=== PATIENT | female | born 1950 | race Caucasian/White ===

== ENCOUNTER 2016-11-29 22:21 | Inpatient (IN) | payer MEDICARE, BC ==
--- NOTE | ~2016-11-29 | US77 ---
[facility] A Service of [facility] & [facility] RADIOLOGY TEXT RESULTS PATIENT: WHITNEY RONDON LOCATION: C2A 217-01 : 54 UNIT #: [id number] AGE: [address]: Anurag Bush MD SEX: F ORDER DR: [id number] [facility] [address] [place], [place] [address] [id number] I MR#: [id number] Acc #: [id number] NAME: WHITNEY RONDON : 1950 SEX: F STUDY DATE/TIME: 11/30/2016 11:00 UNIT: A ROOM: [facility] STUDY DESCRIPTION: US Kidney Bilateral Complete Attending Physician: Anurag Bush M.D. Ordering Physician: Harriet Naik M.D. Primary Care Physician: Eric Rosado M.D. MEDICAL IMAGING REPORT This report is preliminary unless electronic signature is present EXAM Renal ultrasound INDICATIONS Elevated BUN and creatinine. Low GFR. Concern for obstruction. TECHNIQUE Galvez-scale imaging of the kidneys and urinary bladder was performed and compared with 10/19/2015 FINDINGS The left kidney measures 10.8 cm in length. The right kidney measures 8.7 cm in length. Renal cortical thickness and echogenicity is normal. There is no hydronephrosis. Patient has a Lucero catheter and bladder is not visualized. IMPRESSION No hydronephrosis Dictated by... Arvin Pascal M.D. THIS IS AN ELECTRONICALLY VERIFIED REPORT Arvin Pascal M.D. at 12/01/2016 7:54 AM PORSCHE/samara TD: 11/30/2016 17:19 JOB #: [id number] MEDICAL IMAGING REPORT Page 1 of 1 COPY
--- NOTE | ~2016-11-29 | CR243 ---
[facility] A Service of [facility] & [facility] RADIOLOGY TEXT RESULTS PATIENT: WHITNEY RONDON LOCATION: C2A 217-01 : 54 UNIT #: [id number] AGE: [address]: Anurag Bush MD SEX: F ORDER DR: [id number] [facility] [address] [facility]. [place], [place] [address] [id number] MR#: [id number] Acc #: [id number] NAME: WHITNEY RONDON : 1950 SEX: F STUDY DATE/TIME: 11/30/2016 16:02 UNIT: C2A ROOM: [facility] STUDY DESCRIPTION: CR Thoracic Spine 3 Views Attending Physician: Anurag Bush M.D. Ordering Physician: Anurag Bush M.D. Primary Care Physician: Eric Rosado M.D. MEDICAL IMAGING REPORT This report is preliminary unless electronic signature is present EXAM Thoracic spine series HISTORY Back pain for the past week after falling TECHNIQUE 3 views of the thoracic spine were obtained FINDINGS Alignment is satisfactory. There is no evidence of compression fracture or bone destruction. Befl-iv-ruaeuppn degenerative changes are seen throughout the thoracic discs. There is no evidence of bone destruction. The pedicles are intact at each level and no paraspinous masses are seen. IMPRESSION Fklr-mi-frnhaelv multilevel thoracic degenerative disc disease. No acute findings. No fracture seen. If there is continued clinical concern for fracture, consider further evaluation with nuclear medicine bone scanning or MRI. Dictated by... Lucio Cooper M.D. THIS IS AN ELECTRONICALLY VERIFIED REPORT Lucio Cooper M.D. at 12/01/2016 2:15 PM RLF/to TD: 11/30/2016 17:14 JOB #: [id number] MEDICAL IMAGING REPORT Page 1 of 1 COPY
--- NOTE | ~2016-11-29 | HP ---
Unit #: [id number] #: [id number] Patient: WHITNEY RONDON [id number] [address] [place], [place] [address] [id number] I MR#: [id number] NAME: WHITNEY RONDON ROOM: 43913 Age: 66 Sex: F Admission Date: 11/30/2016 : 1950 Attending Physician: Harriet Naik M.D. Primary Care Physician: Eric Rosado M.D. HISTORY AND PHYSICAL CHIEF COMPLAINT Pyelonephritis, acute kidney injury. HISTORY This 66-year-old female with dystonia affecting the right arm and leg, chronic pain, elevated blood pressure, is admitted for pyelonephritis and acute kidney injury with weakness and falling. The patient states that two months ago she developed increasing weakness, and required treatment for a urinary tract infection. Also developed influenzae. Last took antibiotics which I believe was Macrobid about four weeks ago. However, over the past five days, has been falling, actually fell four times and really is unable to ambulate with a walker anymore or even transfer much. More recently, she has developed left sided abdominal and flank pain with dysuria, increasing spasm, fevers, sweats, chills. Notes poor p.o. intake over the past few days as well. She presents to this emergency department with a blood pressure of 93/61 and a low grade temperature. She is tender in the left flank region and left upper quadrant. Labs are notable for acute kidney injury and significant pyuria. In the ER, she was bolused a liter of saline, given 2 gm of Rocephin. PAST MEDICAL HISTORY 1. Admission 10/2015 for hypotension and acute kidney injury. Her antihypertensive medications were stopped at that time. 2. Elevated blood pressures which the patient attributes to pain and stress. 3. GERD. 4. Dystonia affecting the right arm and right leg requiring Botox by Dr. Aniceto Telles. 5. Fibromyalgia. 6. Chronic low back pain following compression fracture from trauma many years ago. 7. History of asthma. 8. Bipolar disorder. 9. Negative cardiac catheterization in 2005. 10. ALTON and BSO. 11. Bilateral carpal tunnel release. 12. Appendectomy. 13. Neuroma removed from the feet bilaterally. 14. Urge incontinence, treated with cystoscopy and Botox injection in August. 15. Lymph node excised. 16. Tonsillectomy. Unit #: [id number] #: [id number] Patient: ALCON,WHITNEY ALLERGIES Reglan, Cipro, sulfa, methadone, and influenza vaccine. Also, possibly allergic to penicillin per current records. HOME MEDICATIONS 1. Morphine sulfate 15 mg t.i.d. 2. Ambien 5 mg q. h.s. p.r.n. 3. Lisinopril 10 mg daily. 4. Valium 10 mg t.i.d. p.r.n. 5. Elavil 25 mg daily. 6. Ditropan 15 mg b.i.d. 7. Zoloft 200 mg daily. FAMILY HISTORY CAD, diabetes mellitus, hypertension. SOCIAL HISTORY The patient lives with her brother. She states that she was previously able to use a walker, now is wheelchair bound. She does no drink alcohol and she is a lifelong nonsmoker. REVIEW OF SYSTEMS Notable for left flank, left abdominal pain, feeling feverish, chills, increasing weakness with fall, dysuria, anorexia, hypertension, GERD, dystonia, fibromyalgia, chronic pain, asthma, bipolar disorder, above mentioned surgeries. All other systems were reviewed and are otherwise negative. PHYSICAL EXAMINATION GENERAL APPEARANCE: 66-year-old, moderately obese female, currently in no acute distress. VITAL SIGNS: Temperature 99.2, pulse 81, respirations 24, blood pressure 93/61, O2 saturation 92% on 4 L of oxygen initially. HEENT: Eyes PERRLA. Extraocular muscles are intact. Pharynx is benign. NECK: Somewhat rotated towards the right. No adenopathy or thyromegaly. CHEST: Clear on patient's supine exam. CARDIAC: Normal S1 and S2 without S3, S4 or murmur. ABDOMEN: Bowel sounds are present. The patient is tender in the left upper quadrant without rebound, guarding. No hepatosplenomegaly or masses. BACK: The patient is tender over the left flank region. EXTREMITIES: Without edema. Pedal pulses are present. NEUROLOGIC EXAM: The patient is awake, alert. She is oriented. Her neck is rotated to the right. She has spasm and contraction of the right hand. DIAGNOSTIC STUDIES LABORATORY: Admission labs - hematocrit is 40.1, white blood count is 11.2, normal platelet count. Normal coags. SMA-12 - glucose 115, BUN 41, creatinine 2.2, up from a BUN of 11, creatinine of 0.7 last year. Sodium 133, chloride is 96, alkaline phos. 111. Lactic acid normal. Cardiac markers are negative. Urinalysis - positive leukocyte esterase, mild protein and blood with 100 to 200 red cells, innumerable white cells, 4+ bacteria, moderate squamous cells seen. Unit #: [id number] #: [id number] Patient: WHITNEY RONDON IMAGING: Chest x-ray - no acute disease. ASSESSMENT 1. Left sided pyelonephritis. 2. Acute kidney injury, likely multifactorial secondary to recent anorexia, with JENNYFER inhibitor and decreased blood pressure. 3. Weakness and falls. 4. History of an elevated blood pressure which the patient attributes to stress and pain. 5. Dystonia affecting the right arm and right leg. 6. Chronic pain. 7. History of asthma. 8. Bipolar disorder. PLANS 1. IV fluids. 2. Discontinue JENNYFER inhibitor. 3. Continue Rocephin. 4. Renal ultrasound. 5. Obtain CPK. 6. DVT prophylaxis. 7. Further workup and consultants depending on above. Dictated by May James/raymond TD: 11/30/2016 06:37 JOB #: [id number] HISTORY AND PHYSICAL Page 1 of 1 X Harriet Naik MD X HISTORY AND PHYSICAL
--- NOTE | ~2016-11-29 | CR72 ---
[facility] A Service of [facility] & [facility] RADIOLOGY TEXT RESULTS PATIENT: WHITNEY RONDON [facility] [id number] [birth year] UNIT #: [id number] AGE: [address]: Harriet Naik MD SEX: F ORDER DR: [id number] [facility] [address] [facility] [place], [place] [address] [id number] E MR#: [id number] Acc #: [id number] NAME: WHITNEY RONDON : 1950 SEX: F STUDY DATE/TIME: 11/29/2016 22:22 UNIT: [facility] ROOM: STUDY DESCRIPTION: CR Chest Single View Portable Attending Physician: Mary Grace Valenzuela M.D. Ordering Physician: Mary Grace Valenzuela M.D. Primary Care Physician: Eric Rosado M.D. MEDICAL IMAGING REPORT This report is preliminary unless electronic signature is present EXAM Portable chest. INDICATION Weakness and shortness of air x2 days. COMPARISON 10/20/2015 FINDINGS A portable view of the chest was obtained. The heart size and vascularity are normal and the lungs are clear and the bones are normal. IMPRESSION No active disease. Dictated by... Aquilino Krishnamurthy M.D. THIS IS AN ELECTRONICALLY VERIFIED REPORT Aquilino Krishnamurthy M.D. at 11/30/2016 5:30 AM Osei TD: 11/30/2016 02:56 JOB #: [id number] MEDICAL IMAGING REPORT Page 1 of 1 COPY
--- NOTE | ~2016-11-29 | CT57 ---
[facility] A Service of [facility] RADIOLOGY TEXT RESULTS PATIENT: WHITNEY RONDON LOCATION: [facility] : 54 UNIT #: [id number] AGE: [address]: Anurag Bush MD SEX: F ORDER DR: [id number] [address] [address] [id number] I MR#: [id number] Acc #: [id number] NAME: WHITNEY RONDON : 1950 SEX: F STUDY DATE/TIME: 11/30/2016 16:19 UNIT: [facility] ROOM: [facility] STUDY DESCRIPTION: CT Chest Wo Cont Attending Physician: Anurag Bush M.D. Ordering Physician: Anurag Bush M.D. Primary Care Physician: Eric Rosado M.D. MEDICAL IMAGING REPORT This report is preliminary unless electronic signature is present EXAM CT chest without contrast. INDICATION General weakness, shortness of breath, and back pain since yesterday. Possible pneumonia. TECHNIQUE CT chest performed without contrast. Coronal and sagittal reformatted images were obtained. This CT exam was performed with one or more of the following radiation dose reduction techniques: automatic exposure control, adjustment of mA and/or kV according to patient size, and iterative reconstruction. COMPARISON STUDIES No comparisons. FINDINGS There is bilateral atelectasis or scarring in the dependent portions of the lower lobes. There is no airspace consolidation or suspicious pulmonary nodule. Limited imaging in the upper abdomen is unremarkable. The bone windows are unremarkable. IMPRESSION There is bilateral dependent lower lobe atelectasis or scarring. There is no airspace consolidation. Dictated by... [facility] A Service [facility] RADIOLOGY TEXT RESULTS PATIENT: WHITNEY RONDON LOCATION: [facility] : 54 UNIT #: [id number] AGE: [address]: Anurag Bush MD SEX: F ORDER DR: Arvin Pascal M.D. THIS IS AN ELECTRONICALLY VERIFIED REPORT Arvin Pascal M.D. at 12/01/2016 7:54 AM PORSCHE/miya TD: 11/30/2016 17:14 JOB #: [id number] MEDICAL IMAGING REPORT Page 1 of 1 COPY
--- NOTE | ~2016-11-29 | CR181 ---
[facility] A Service of [facility] & [facility] RADIOLOGY TEXT RESULTS PATIENT: WHITNEY RONDON LOCATION: A 217-01 : 54 UNIT #: [id number] AGE: [address]: Anurag Bush MD SEX: F ORDER DR: [id number] [facility] [address] [facility]. [place], [place] [address] [id number] I MR#: [id number] Acc #: [id number] NAME: WHITNEY RONDON : 1950 SEX: F STUDY DATE/TIME: 11/30/2016 15:53 UNIT: A ROOM: [facility][note 3] STUDY DESCRIPTION: CR Lumbar Spine 2 or 3 Views Attending Physician: Anurag Bush M.D. Ordering Physician: Anurag Bush M.D. Primary Care Physician: Eric Rosado M.D. MEDICAL IMAGING REPORT This report is preliminary unless electronic signature is present EXAM Lumbar spine series HISTORY Lower to mid back pain for the past week after falling TECHNIQUE 3 views lumbar spine were obtained FINDINGS Alignment is satisfactory. There is mild disc space narrowing at the upper 3 lumbar discs. There is moderate disc space narrowing at L3-4, L4-5 and L5-S1 with small osteophytes. No fractures are seen and no destructive bone lesions are noted. Posterior facets are unremarkable. IMPRESSION Mild upper lumbar and moderate ejb-gi-xpexr lumbar degenerative disc disease. Normal alignment. No acute bony abnormalities are seen. Dictated by... Lucio Cooper M.D. THIS IS AN ELECTRONICALLY VERIFIED REPORT Lucio Cooper M.D. at 12/01/2016 2:15 PM RLF/to TD: 11/30/2016 17:07 JOB #: [id number] MEDICAL IMAGING REPORT Page 1 of 1 COPY
--- NOTE | ~2016-11-29 | DS ---
Unit #: [id number] #: [id number] Patient: WHITNEY RONDON [id number] [address] [place], [place] [address] [id number] I MR#: [id number] NAME: WHITNEY RONDON ROOM: 217 Age: 66 Sex: F Admission Date: 11/30/2016 : 1950 Discharge Date: 12/02/2016 Attending Physician: Anurag Bush M.D. Primary Care Physician: Eric Rosado M.D. DISCHARGE SUMMARY DISCHARGE DIAGNOSES 1. Proteus urinary tract infection, will be discharged home with Omnicef for an additional 5 days. 2. Acute kidney injury, prerenal, resolved with IV fluid hydration. 3. Acute hypoxic respiratory failure, likely secondary to asthma exacerbation. Will be checking for the need for home oxygen usage. 4. Acute asthma exacerbation, treated with prednisone upon discharge. 5. Deconditioning. Patient had denied physical/occupational therapy evaluation. The patient may be discharged home. She also denies subacute rehab placement. The patient will be discharged home per her wish to continue with physical therapy/occupational therapy at her home. 6. Dysphagia. The patient tells me that she has had neck surgery in the past and at times will have signs of dysphagia. Speech therapy was consulted for an evaluation. The patient had denied their evaluation. I have spoken with patient for the need to workup the dysphagia and if there is sudden aphasia/dysphagia, she may be aspirating and would be at high-risk for pneumonia. She voiced understanding but still denied speech therapy's evaluation. 7. Essential hypertension. Blood pressure has been stable during this hospitalization. 8. History of dystonia, affecting the right arm and leg. 9. Chronic pain. She is on MSIR at home. 10. Bipolar disorder, stable without any mimic episode. CONSULTANTS None. PROCEDURES None. DIAGNOSTIC STUDIES IMAGING: Chest x-ray on 11/29/2016, with no active disease. Renal ultrasound 11/30/2016, impression, no hydronephrosis. Spine series of the lumbar on 11/30/2016, impression, mild upper lumbar and moderate hic-ee-hxuhs lumbar degenerative disc disease, normal alignment and no acute bony abnormalities are seen. X-ray of the thoracic spine, impression, etpy-va-lbceacbb multilevel thoracic degenerative disc disease, no acute findings. No fracture seen. There is continued clinical concern, consider MRI. CT of chest without contrast on 11/30/2016, impression, there is bilateral dependent lower lobe atelectasis or scarring, there is no airspace consolidation. LABORATORY: Labs on the day of discharge, patient's labs include BMP, Unit #: [id number] #: [id number] Patient: WHITNEY RONDON glucose 131, BUN 21, creatinine 0.8, sodium 138, potassium 3.9, chloride 102, CO2 of 28, magnesium was 1.9. CBC with WBC of 11.1, RBC 4.92, hemoglobin 12.8, hematocrit 39.4, MCV is 80.2, MCH is 26.0, MCHC is 32.4, RDW 72.0, platelets 73, MPV is 8.0. Patient's urine culture had growth of Proteus mirabilis with colony count of greater than 100,000 sensitive to cephalosporin, 3rd generation cephalosporin. HOSPITAL COURSE The patient is a 66-year-old female who is chronically ill-appearing with past medical history of dystonia affecting the right arm and leg, chronic pain, essential hypertension, GERD, fibromyalgia, asthma, bipolar disorder, who presented to the emergency department due to weakness. The patient stated that at the end of last fall, she had flu and had been deconditioning since then. 2 months ago, she had had increasing weakness and was treated for UTI. The last antibiotic that was prescribed for her was Macrobid and that was 4 weeks ago. Over the past 5 days, the patient had been falling at home. She states that she ambulates with a walker, but is no longer able to self-transfer. She does live at home with her brother. She was seen in the emergency department where she was found to have a blood pressure of 93/61, a low-grade fever, she had left leg pain, and was admitted for acute kidney injury with a creatinine of 2.2 with a UTI and deconditioning. She was receiving antibiotics with Rocephin and was concerned that she was hypoxic, therefore, a CT scan of her chest without contrast was done which found bilateral lower extremity atelectasis consistent with a patient who was basically bed-bound for the past couple of months, but no consolidation seen. She also tells me that she has back pain, and therefore, a spine x-ray of lumbar thoracic was done. No fracture was seen. For her acute kidney injury, bilateral renal ultrasound was done which found no hydronephrosis, and the patient tells me that she has had surgery in the past in her neck and had a nerve nicked, therefore, at times would have symptoms of dysphagia. Asked Speech Therapy to see the patient and calls the patient, but she had denied their assessment all together. I have spoken to the patient about that she may have signs of dysphagia and if we do not assess this, the patient could be aspirated, and is at high-risk for pneumonia. She voiced understanding, but continues to deny Speech Therapy evaluation. Due to her much deconditioning with inability to transfer, I have asked Physical and Occupational therapy to evaluate this patient, but she had also denied their assessment, stating that she basically, just wants to go home. Her brother can help her at home, and she would do fine with physical and occupational therapy through [facility]. At this time, I would like for the patient to be evaluated to see if she would benefit with subacute rehab, but she would not be willing to participate in therapy or their evaluation. For her UTI, it did have Proteus growth, sensitive to third generation cephalosporin. She will be discharged on home Omnicef, and also for hypoxia, we are checking to see if she needs home oxygen at this time. We will be discharging her with prednisone 40 mg daily for the next 4 days for her acute asthma exacerbation with acute hypoxia. At this time, she is stable to be discharged home to follow-up with her primary care physician in 1-2 weeks. Evaluation for home oxygen is being arranged right now. She may have home health through [facility] for continued physical/occupational and nursing needs. The patient's family physician is Eric Rosado MD. DISCHARGE CONDITION Stable to home with Home Health. ACTIVITIES Unit #: [id number] #: [id number] Patient: WHITNEY RONDON Resume activities as was prior to hospitalization. She will be having physical therapy out to evaluate her. DIET Resume her heart-healthy diet. MEDICINES 1. Prednisone 40 mg orally daily for the next 4 days. 2. Amitriptyline 25 mg orally daily. 3. Zoloft 200 mg orally daily. 4. Miconazole nitrate 2% powder, apply topically twice daily. 5. Ambien 5 mg orally at bedtime as needed for sleep. 6. Valium 5 mg orally every 8 hours as needed for anxiety. 7. Ditropan 15 mg orally twice daily. 8. Lisinopril 10 mg orally daily. 9. Morphine 15 mg orally 3 times daily. 10. Omnicef 300 mg orally daily for the next 5 days. Please note also that she was seen in consultation with Wound Care for yeast-appearing rash on her groin and bilateral breasts, who recommends Nystatin powder to apply twice daily to the skin folds. Dictated by... Dinesh Nguyen PA-C for May Meraz/jones TD: 12/02/2016 22:54 JOB #: [id number] DISCHARGE SUMMARY Page 1 of 1 X X DISCHARGE SUMMARY
--- NOTE | ~2016-11-29 | EKG ---
PATIENT: WHITNEY RONDON UNIT #: [id number] Ventricular Rate: 73 BPM Atrial Rate: 73 BPM P-R Interval: 174 ms QRS Duration: 72 ms Q-T Interval: 370 ms QTC Calculation(Bezet): 407 ms P Seneca: 9 degrees Calculated R Seneca: 24 degrees Calculated T Seneca: 21 degrees Diagnosis Line: Normal sinus rhythm Diagnosis Line: Normal ECG Diagnosis Line: No previous ECGs available Diagnosis Line: Confirmed by UZMA RAMIREZ MD ([id number]) on 11/30/2016 Diagnosis Line: 10:45:33 PM INTERPRETING MD: ASHLEY AGUILAR
[~2016-11-29 22:21] MED LIST: ALBUTEROL17 GM INH; AMITRYPTYLINE PO; ASPIRIN PO; ASPIRIN81 M1 PO; ASPIRIN81 M2 PO; AVENZA PO; AVINZA60 MG PO; BACLOFEN10 MG PO; CERTAGEN PO; CLARITIN10 MG PO; CYMBALTA PO; DIAZEPAM PO; FLEXERIL10 MG PO; FLONASE16 GM; IBUPROFEN PO; KEFLEX PO; LEVAQUIN750 MG PO; LIDODERM1 EACH; LIDODERM30 EA TOP; LISINOPRIL-HCTZ1 T20 PO; LISINOPRIL10 MG PO; MORPHINE SULFAT15 M3 PO; OMEPRAZOLE20 M2 PO; OXYBUTYNIN CHLO15 MG; PHENERGAN25 MG PO; PRILOSEC PO; ROZEREM8 MG PO; SAVELLA50 MG PO; SERTRALINE HCL100 M1 PO; SUMATRIPTAN SUC50 M1; ULTRAM PO; ZEGERID40 MG/PKT PO; ZITHROMAX PO; ZOFRAN PO; ZOLPIDEM TARTRAT5 MG PO
[2016-11-29 22:55] LABS: POC - CKMB <1.0 ng/mL (0.0-7.9); POC - TROPONIN <0.05 ng/mL (<=0.05)
[2016-11-29 23:08] LABS: BASOPHIL# 0.1 X10e3 (0-0.3); BASOPHIL% 0.6 % (0-2.5); EOSINOPHIL# 0.3 X10e3 (0-0.7); EOSINOPHIL% 2.3 % (0.0-7.0); HEMATOCRIT 40.1 % (35.0-45.0); HEMOGLOBIN 12.9 gm/dL (12.0-16.0); LYMPHOCYTE# 2.2 X10e3 (1.0-3.5); LYMPHOCYTE% 19.2 % (17.0-45.0); MEAN CELL VOLUME 80.1 FL (83-96); MEAN CORPUSCULAR HEMOGLOBIN 25.8 PG (28-34); MEAN CORPUSCULAR HGB CONC 32.2 g/dL (30-36); MEAN PLATELET VOLUME 7.9 FL (6.5-11.5); MONOCYTE# 0.8 X10e3 (0-1.0); MONOCYTE% 6.9 % (3.0-12.0); PLATELET COUNT 375 X10e3 (140-420); RED BLOOD COUNT 5.01 X10e (3.90-5.30); RED CELL DISTRIBUTION WIDTH 17.1 % (11.0-15.5); WHITE BLOOD COUNT 11.2 X10e3 (4.0-10.5)
[2016-11-29] MEDS ORDERED: MORPHINE SULFAT15 MG PO (23:08)
[2016-11-29 23:09] LABS: DIFF IND NO
[2016-11-29] MEDS ORDERED: AMBIEN PO (23:09)
[2016-11-29] MEDS ORDERED: LISINOPRIL10 MG PO (23:10)
[2016-11-29] MEDS ORDERED: VALIUM2 MG PO (23:11)
[2016-11-29] MEDS ORDERED: AMITRIPTYLINE H25 MG PO (23:11)
[2016-11-29] MEDS ORDERED: DITROPAN PO (23:13)
[2016-11-29] MEDS ORDERED: ZOLOFT PO (23:13)
[2016-11-29 23:17] LABS: PROTHROMBIN TIME (PATIENT) 10.2 SECONDS (9.6-11.5)
[2016-11-29 23:33] LABS: ALBUMIN SERUM 3.7 g/dL (3.5-5.0); BILIRUBIN, DIRECT 0.1 mg/dL (0.0-0.2); BILIRUBIN,TOTAL 0.1 mg/dL (0.2-2.0); BUN/CREATININE RATIO 18.63; CALCIUM SERUM 9.2 mg/dL (8.4-10.2); CREATININE SERUM 2.2 mg/dL (0.6-1.4); GLOM FILT RATE Estimated 22.9 mL/min (>60); POTASSIUM 4.5 mmol/L (3.5-5.1); PROTEIN TOTAL SERUM 7.8 g/dL (6.0-8.3)
[2016-11-29 23:38] LABS: URINE APPEARANCE SL CLOUDY; URINE COLOR YELLOW; URINE SOURCE CATH; URINE SPECIFIC GRAVITY 1.019 (1.003-1.035)
[2016-11-29 23:39] LABS: URINE GLUCOSE NORM (NEG); URINE LEUKOCYTE ESTERASE 3+ (NEG); URINE NITRATE NEG (NEG); URINE PROTEIN 100 (NEG)
[2016-11-29 23:40] LABS: URBCS1 AUWI 100-200 /[HPF] (0-2); URINE BILIRUBIN NEG (NEG); URINE BLOOD 1+ (NEG); URINE KETONE 1+ (NEG)
[2016-11-29 23:41] LABS: CULTURE INDICATED? YES; URINE BACTERIA AUWI 4+ (NEGATIVE); URINE SQUAMOUS EPITHELIAL CELL MODERATE /[HPF]; UWBCS1 AUWI INNUM (0-5)
[2016-11-30 06:04] LABS: BASOPHIL# 0.1 X10e3 (0-0.3); BASOPHIL% 0.7 % (0-2.5); EOSINOPHIL# 0.3 X10e3 (0-0.7); HEMATOCRIT 36.6 % (35.0-45.0); HEMOGLOBIN 11.6 gm/dL (12.0-16.0); LYMPHOCYTE# 3.4 X10e3 (1.0-3.5); LYMPHOCYTE% 32.1 % (17.0-45.0); MEAN CELL VOLUME 80.8 FL (83-96); MEAN CORPUSCULAR HEMOGLOBIN 25.7 PG (28-34); MEAN CORPUSCULAR HGB CONC 31.8 g/dL (30-36); MEAN PLATELET VOLUME 8.1 FL (6.5-11.5); MONOCYTE# 0.9 X10e3 (0-1.0); MONOCYTE% 8.2 % (3.0-12.0); NEUTROPHIL# 5.8 X10e3 (1.5-7.1); PLATELET COUNT 338 X10e3 (140-420); RED BLOOD COUNT 4.53 X10e (3.90-5.30); RED CELL DISTRIBUTION WIDTH 17.3 % (11.0-15.5); WHITE BLOOD COUNT 10.4 X10e3 (4.0-10.5)
[2016-11-30 06:15] LABS: DIFF IND NO
[2016-11-30 06:24] LABS: CALCIUM SERUM 8.4 mg/dL (8.4-10.2); CREATININE SERUM 1.8 mg/dL (0.6-1.4); GLOM FILT RATE Estimated 29.2 mL/min (>60); POTASSIUM 4.4 mmol/L (3.5-5.1)
[2016-12-01 05:27] LABS: HEMATOCRIT 34.5 % (35.0-45.0); HEMOGLOBIN 11.1 gm/dL (12.0-16.0); MEAN CELL VOLUME 80.4 FL (83-96); MEAN CORPUSCULAR HEMOGLOBIN 25.9 PG (28-34); MEAN CORPUSCULAR HGB CONC 32.3 g/dL (30-36); MEAN PLATELET VOLUME 7.9 FL (6.5-11.5); RED BLOOD COUNT 4.3 X10e (3.90-5.30); RED CELL DISTRIBUTION WIDTH 16.5 % (11.0-15.5); WHITE BLOOD COUNT 9.3 X10e3 (4.0-10.5)
[2016-12-01 05:41] LABS: BUN/CREATININE RATIO 22.5; CALCIUM SERUM 8.6 mg/dL (8.4-10.2); CREATININE SERUM 0.8 mg/dL (0.6-1.4); MAGNESIUM 1.9 mg/dL (1.6-3.0); POTASSIUM 4.3 mmol/L (3.5-5.1)
[2016-12-02 06:07] LABS: HEMATOCRIT 39.4 % (35.0-45.0); HEMOGLOBIN 12.8 gm/dL (12.0-16.0); MEAN CELL VOLUME 80.2 FL (83-96); MEAN CORPUSCULAR HGB CONC 32.4 g/dL (30-36); RED BLOOD COUNT 4.92 X10e (3.90-5.30); WHITE BLOOD COUNT 11.1 X10e3 (4.0-10.5)
[2016-12-02 06:48] LABS: ALBUMIN SERUM 3.2 g/dL (3.5-5.0); BILIRUBIN,TOTAL 0.8 mg/dL (0.2-2.0); BUN/CREATININE RATIO 26.25; CALCIUM SERUM 9.2 mg/dL (8.4-10.2); CREATININE SERUM 0.8 mg/dL (0.6-1.4); POTASSIUM 3.9 mmol/L (3.5-5.1); PROTEIN TOTAL SERUM 7.4 g/dL (6.0-8.3)
[2016-12-02 07:11] LABS: FOLATE (FOLIC ACID) >23.6 ng/mL (>5.8)
[2016-12-02 07:13] LABS: IRON SERUM 37 ug/dL (28-170); TOTAL IRON BINDING CAPACITY 322 ug/dL (269-535); TRANSFERRIN 230 mg/dL (192-382); TRANSFERRIN SATURATION 11 % (20-50)
[2016-12-02] MEDS ORDERED: DESENEX85 GM TOP (12:34)
[2016-12-02] MEDS ORDERED: OMNICEF300 MG PO (12:34)
[2016-12-02] MEDS ORDERED: PREDNISONE PO (12:35)
== END 2016-12-02 14:00 | disposition home or self-care (01) | DRG 682 ==
LOC: CED 22:21 → CEDOF 11-30 03:30 → C2A 11-30 07:47
PROVIDERS: Emergency Medicine; Family Medicine; Internal Medicine; Physician Assistant Medical
DX: N17.9 Acute kidney failure, unspecified (principal); J96.01 Acute respiratory failure with hypoxia; J45.901 Unspecified asthma with (acute) exacerbation; R13.10 Dysphagia, unspecified; G24.8 Other dystonia; N39.0 Urinary tract infection, site not specified; K21.9 Gastro-esophageal reflux disease without esophagitis; B96.4 Proteus (mirabilis) (morganii) as the cause of diseases classified elsewhere; I10 Essential (primary) hypertension; G89.29 Other chronic pain; M79.7 Fibromyalgia; Z88.1 Allergy status to other antibiotic agents; Z88.0 Allergy status to penicillin; Z88.2 Allergy status to sulfonamides; Z88.7 Allergy status to serum and vaccine; Z83.3 Family history of diabetes mellitus; Z82.49 Family history of ischemic heart disease and other diseases of the circulatory system; E66.9 Obesity, unspecified; Z91.81 History of falling; Z90.49 Acquired absence of other specified parts of digestive tract; Z99.3 Dependence on wheelchair
CPT/HCPCS: 36415; 71010; 71250; 72072; 72100; 76770; 80048; 80053; 80076; 81003; 82150; 82550; 82553; 82607; 82746; 82947; 83540; 83550; 83605; 83690; 83735; 83880; 84484; 85025; 85027; 85610; 87086; 87088; 87186; 92610; 93005; 96361; 96365; 96372; 99285; G8996-GN; G8997-GN; G8998-GN; J0696; J1650; J2405; J2550; J2920

== ENCOUNTER 2016-12-02 23:57 | Emergency (ER) | payer MEDICARE, BC ==
[~2016-12-02 23:57] MED LIST changes: +AMBIEN PO; +AMITRIPTYLINE H25 MG PO; +DESENEX85 GM TOP; +DITROPAN PO; +MORPHINE SULFAT15 MG PO; +OMNICEF300 MG PO; +PREDNISONE PO; +VALIUM2 MG PO; +ZOLOFT PO
[2016-12-03 00:23] LABS: BASOPHIL# 0.2 X10e3 (0-0.3); BASOPHIL% 1.1 % (0-2.5); HEMATOCRIT 40.2 % (35.0-45.0); LYMPHOCYTE# 2.3 X10e3 (1.0-3.5); LYMPHOCYTE% 14.1 % (17.0-45.0); MEAN CELL VOLUME 79.8 FL (83-96); MEAN CORPUSCULAR HEMOGLOBIN 25.8 PG (28-34); MEAN CORPUSCULAR HGB CONC 32.4 g/dL (30-36); MEAN PLATELET VOLUME 7.8 FL (6.5-11.5); MONOCYTE# 1.3 X10e3 (0-1.0); MONOCYTE% 7.9 % (3.0-12.0); NEUTROPHIL# 12.8 X10e3 (1.5-7.1); NEUTROPHIL% 76.9 % (40-75); PLATELET COUNT 431 X10e3 (140-420); RED BLOOD COUNT 5.03 X10e (3.90-5.30); RED CELL DISTRIBUTION WIDTH 17.1 % (11.0-15.5)
[2016-12-03 00:24] LABS: DIFF IND YES; WHITE BLOOD COUNT 16.6 X10e3 (4.0-10.5)
[2016-12-03 00:49] LABS: ALBUMIN SERUM 3.7 g/dL (3.5-5.0); BILIRUBIN, DIRECT 0.1 mg/dL (0.0-0.2); BILIRUBIN,INDIRECT 0.5 mg/dL (0.0-0.9); BILIRUBIN,TOTAL 0.6 mg/dL (0.2-2.0); BUN/CREATININE RATIO 33.33; CALCIUM SERUM 9.4 mg/dL (8.4-10.2); CREATININE SERUM 0.9 mg/dL (0.6-1.4); GLOM FILT RATE Estimated 67.6 mL/min (>60); POTASSIUM 3.9 mmol/L (3.5-5.1); PROTEIN TOTAL SERUM 7.7 g/dL (6.0-8.3)
[2016-12-03 01:10] LABS: URINE SOURCE CLEAN CATCH
[2016-12-03 01:43] LABS: PLATELET ESTIMATE INCREASED (NORMAL)
[2016-12-03 01:44] LABS: ANISOCYTOSIS SL; MICROCYTOSIS MOD
[2016-12-03 01:45] LABS: URINE APPEARANCE CLEAR; URINE BLOOD NEG (NEG); URINE COLOR DK YELLOW; URINE GLUCOSE NEG (NEG); URINE KETONE 1+ (NEG); URINE LEUKOCYTE ESTERASE TRACE (NEG); URINE NITRATE POS (NEG); URINE PH 5.5 (5-8); URINE PROTEIN NEG (NEG)
[2016-12-03 01:51] LABS: URBCS1 AUWI 0-2 /[HPF] (0-2); URINE BACTERIA AUWI NEG (NEGATIVE); URINE SQUAMOUS EPITHELIAL CELL FEW /[HPF]
[2016-12-03 02:07] LABS: CULTURE INDICATED? NO; U HYALINE CASTS AUWI 0-2 /[LPF]; URINE BILIRUBIN NEG (NEG)
== END 2016-12-03 09:30 | disposition home or self-care (01) ==
LOC: CED 23:57
PROVIDERS: Emergency Medicine
DX: R11.2 Nausea with vomiting, unspecified (principal); G89.29 Other chronic pain; M54.9 Dorsalgia, unspecified; K21.9 Gastro-esophageal reflux disease without esophagitis; I10 Essential (primary) hypertension; J45.909 Unspecified asthma, uncomplicated; F32.9 Major depressive disorder, single episode, unspecified; Z90.49 Acquired absence of other specified parts of digestive tract; Z90.710 Acquired absence of both cervix and uterus; Z90.89 Acquired absence of other organs
CPT/HCPCS: 36415; 51701; 80048; 80076; 81003; 83690; 85025; 96361; 96374; 96375; 96376; 99284; J0696; J2270; J2405

== ENCOUNTER 2016-12-03 10:15 | Observation (INO) | payer MEDICARE, BC | END 2016-12-03 12:31 | disposition home or self-care (01) | LOC: CED 10:15 → CEDOF 10:30 | DX: R11.2 Nausea with vomiting, unspecified (principal); G89.29 Other chronic pain; G24.9 Dystonia, unspecified | CPT/HCPCS: 99285; G0378 ==

== ENCOUNTER 2016-12-31 12:37 | Inpatient (IN) | payer MEDICARE, BC ==
--- NOTE | ~2016-12-31 | CR72 ---
[facility] A Service of [facility] & [facility] RADIOLOGY TEXT RESULTS PATIENT: WHITNEY RONDON LOCATION: [place] [address]12 : 52 UNIT #: [id number] AGE: [address]: Anurag Bush MD SEX: F ORDER DR: [id number] [facility] [address] [facility]. [place], [place] [address] [id number] I MR#: [id number] Acc #: [id number] NAME: WHITNEY RONDON : 1950 SEX: F STUDY DATE/TIME: 01/03/2017 4:05 UNIT: [facility] ROOM: [facility] STUDY DESCRIPTION: CR Chest Single View Portable Attending Physician: Anurag Bush M.D. Ordering Physician: Brianna Pimentel M.D. Primary Care Physician: Eric Rosado M.D. MEDICAL IMAGING REPORT This report is preliminary unless electronic signature is present EXAM Single view chest HISTORY Respiratory failure. Abdominal obstruction. FINDINGS Single portable AP view of the chest compared to 01/02/2017. The endotracheal tube has been removed. Right IJ central line and enteric tube are unchanged. Heart and mediastinal contours are stable. There is improved lung volumes. There is decreasing perihilar airspace opacities. Area of consolidation or atelectasis in the right midlung is slightly better. IMPRESSION 1. Interval extubation. 2. Increased lung volumes with slight improvement of airspace opacities. Dictated by... Antonio Gavin M.D. THIS IS AN ELECTRONICALLY VERIFIED REPORT Antonio Gavin M.D. at 01/03/2017 9:07 PM ZIA/devin TD: 01/03/2017 07:47 JOB #: [id number] MEDICAL IMAGING REPORT Page 1 of 1 COPY
--- NOTE | ~2016-12-31 | DS ---
Unit #: [id number] #: [id number] Patient: WHITNEY RONDON [id number] [facility] [address] [place], [place] [address] [id number] I MR#: [id number] NAME: WHITNEY RONDON ROOM: 558 Age: 66 Sex: F Admission Date: 12/31/2016 : 1950 Discharge Date: 01/05/2017 Attending Physician: Anurag Bush M.D. Primary Care Physician: Eric Rosado M.D. DISCHARGE SUMMARY REASON FOR ADMISSION Hypertension, mental status change. HISTORY OF PRESENT ILLNESS/HOSPITAL COURSE The patient is a morbidly obese 56-year-old female with a prior history of dystonia, followed by Dr. Telles as an outpatient, mainly on the right side, chronic pain syndrome, hypertension, who was brought to the emergency department secondary to mental status change. Apparently, she had been recently admitted to [facility] secondary to abdominal obstruction status post lysis of adhesions. She was discharged to [facility] and at [facility] she underwent rehab and was subsequently discharged home. She went to go see her primary care physician. She received, I believer, cortisone injection at her primary care physician's office. She began developing more somnolence, mental status changes and, subsequently, she was asked to go to the emergency room. While she was evaluated in the emergency room, it was noted that she did have decreased blood pressure of systolic in the 70s. She was also noted to have acute hypoxic respiratory failure and, therefore, she was being admitted secondary to sepsis criteria as well as chest x-ray showing early signs of pneumonia. Initial admission diagnosis, secondary to healthcare-acquired pneumonia as well as acute hypoxic respiratory failure, subsequently prompted pulmonary consultation as well as ICU placement. The patient was followed by Dr. Pimentel and associates. Through her hospital course, the patient did eventually undergo bronchoscopy. Please see the procedure note for details. Secondary to septic shock, she was placed on Solu-Cortef which was gradually discontinued. Her antibiotics were transitioned into p.o. Her Solu-Medrol/Solu-Cortef was also transitioned to p.o. From a pulmonary standpoint, she did show improvement. We also placed consultation to nephrology services secondary to acute kidney injury. Initially, it was noted that what appeared to be likely secondary to dehydration, her creatinine was 2.7. At time of discharge, her creatinine currently stands at 0.6. Dr. Caba and associates did follow the patient through hospital course. Secondary to her chronic medical conditions, we did consult physical and occupational therapy for evaluation. Overall, her functional status as well as mobility status is quite poor. We did recommend rehab and/or consideration to fdc placement to which she refused. She stated that she wished to go home to the care of her brother as well as physical Unit #: [id number] #: [id number] Patient: ALCON,WHITNEY therapy at home and VNA services to follow at home. Some of her mental status changes are likely secondary to underlying polypharmacy and she was taking morphine, Ditropan as well as other underlying narcotic medications while at home and, therefore, her morphine was later discontinued. Her pain medications were also discontinued and she has not received any while here. At this point in time, she is currently medically stable. Blood pressure is stable as well for discharge home. At time of discharge, her hemoglobin currently stands at 10.0, creatinine 0.6. Bronchoscopy cultures did not reveal any acute bacterial growth and she appears medically stable for discharge. I have reviewed the plans with both the patient as well as patient's brother who is present at bedside, apprised them that perhaps consideration may be given to fdc care secondary to her longstanding history of dystonia and chronic immobility syndrome. However, patient adamantly states that she wishes to go home. FINAL DISCHARGE DIAGNOSES 1. Sepsis, present on admission. 2. Healthcare-acquired pneumonia: Antibiotics now de-escalated. 3. Acute kidney injury, now resolved. 4. Hypotension on admission, now improved. 5. Acute hypoxic respiratory failure on admission, now resolved. 6. Gastroesophageal reflux disease. 7. Hypertension. 8. Dystonia, chronic, followed by Dr. Telles. 9. Fibromyalgia. 10. Chronic back pain. 11. Toxic metabolic encephalopathy, likely secondary to polypharmacy and/or narcotic medications, now discontinued. 12. Asthma. 13. Bipolar disorder. 14. Morbid obesity. 15. Recent hospital admission secondary to abdominal pain and lysis of adhesions. FINAL DISCHARGE MEDICATIONS 1. Tylenol 650 mg p.o. q.6 p.r.n. 2. Zoloft 200 mg p.o. daily. 3. Valium 5 mg p.o. q.8 p.r.n. 4. Bumex 2 mg p.o. b.i.d. 5. Aspirin 81 mg daily. 6. Omeprazole 40 mg p.o. daily. DISCHARGE CONDITION Stable. DISCHARGE DISPOSITION Home. FOLLOWUP Dr. Telles for outpatient Botox injections in regards to dystonia. Overall fdc prognosis of this patient is poor. Chance of readmission high. Unit #: [id number] #: [id number] Patient: WHITNEY RONDON Dictated by... May Meraz/raymond TD: 01/06/2017 06:44 JOB #: [id number] DISCHARGE SUMMARY Page 1 of 1 X Anurag Bush MD X DISCHARGE SUMMARY
--- NOTE | ~2016-12-31 | CT57 ---
[facility] A Service of [facility] RADIOLOGY TEXT RESULTS PATIENT: WHITNEY RONDON LOCATION: [address]12 : [birth year] UNIT #: [id number] AGE: [address]: Tavo Yang MD SEX: F ORDER DR: [id number] [facility] [address]. [place], [place] [address] [id number] I MR#: [id number] Acc #: [id number] NAME: WHITNEY RONDON : 1950 SEX: F STUDY DATE/TIME: 12/31/2016 21:28 UNIT: [facility] ROOM: [facility] STUDY DESCRIPTION: CT Chest Wo Cont Attending Physician: Aries Acevedo M.D. Ordering Physician: Brianna Pimentel M.D. Primary Care Physician: Eric Rosado M.D. MEDICAL IMAGING REPORT This report is preliminary unless electronic signature is present CT chest. INDICATION Shortness of air. Pneumonia. Respiratory failure. TECHNIQUE CT of the chest without contrast. Coronal and sagittal reconstructions were obtained. This CT exam was performed with one or more of the following radiation dose reduction techniques: automatic exposure control, adjustment of mA and/or kV according to patient size, and iterative reconstruction. COMPARISON CT chest dated 11/30/2016, and chest radiograph dated 12/31/2016. FINDINGS Cardiac size is mildly enlarged. Thoracic aorta is within normal limits. There is no pericardial or pleural effusion. Right IJ central line terminates over the SVC. There is dense consolidation with air bronchograms in the right upper lobe. This is most consistent with a pneumonia. Follow up radiographs are recommended to document resolution. There is some linear airspace opacity in the right lower lobe and in the left lower lobe. This likely represents atelectasis. Multifocal pneumonia is an additional consideration. There is partial collapse of the trachea and bronchus during expiration. This is indicative of a tracheal bronchomalacia. Limited images of the upper abdomen were obtained. There is overall gallbladder distension. The gallbladder measuring up to 5.6 cm in diameter. No gallbladder inflammation. [facility] A Service of [facility] RADIOLOGY TEXT RESULTS PATIENT: WHITNEY RONDON LOCATION: [facility]2-12 : 52 UNIT #: [id number] AGE: [address]: Tavo Yang MD SEX: F ORDER DR: No acute osseous abnormalities. IMPRESSION 1. Dense area consolidation in the right upper lobe consistent with a right upper lobe pneumonia. Follow up radiographs recommended to document resolution. 2. More linear airspace opacities in the dependent portions of the right lower lobe and left lower lobe probably represent atelectasis, however, this could be a multifocal pneumonia. 3. Distended gallbladder measuring up to 5.5 cm. No gallbladder inflammation to suggest an acute cholecystitis. 4. Tracheal bronchomalacia. Dictated by... Antonio Gavin M.D. THIS IS AN ELECTRONICALLY VERIFIED REPORT Antonio Gavin M.D. at 01/02/2017 10:30 PM ZIA/jones TD: 12/31/2016 23:19 JOB #: [id number] MEDICAL IMAGING REPORT Page 1 of 1 COPY
--- NOTE | ~2016-12-31 | CR6 ---
[facility] A Service of [facility] & [facility] RADIOLOGY TEXT RESULTS PATIENT: WHITNEY RONDON LOCATION: [address]12 : [birth year] UNIT #: [id number] AGE: [address]: Heidi Salgado MD SEX: F ORDER DR: [id number] [facility] [address] [place], [place] [address] [id number] I MR#: [id number] Acc #: [id number] NAME: WHITNEY RONDON : 1950 SEX: F STUDY DATE/TIME: 01/01/2017 9:47 UNIT: [facility] ROOM: [facility] STUDY DESCRIPTION: CR Abdomen Portable Sng View Attending Physician: Heidi Salgado M.D. Ordering Physician: Heidi Salgado M.D. Primary Care Physician: Eric Rosado M.D. MEDICAL IMAGING REPORT This report is preliminary unless electronic signature is present EXAM Portable KUB. HISTORY Dobbhoff tube placement. COMPARISON 12/10/2016 TECHNIQUE A single view of the abdomen was obtained. FINDINGS The Dobbhoff tube is seen with the tip in the distal stomach near the pylorus in satisfactory position. The bowel gas pattern is normal. STAT * RESULT Dictated by... Lucio Cooper M.D. THIS IS AN ELECTRONICALLY VERIFIED REPORT Lucio Cooper M.D. at 01/01/2017 12:13 PM SRIRAM/miya TD: 01/01/2017 10:28 JOB #: [id number] MEDICAL IMAGING REPORT Page 1 of 1 COPY
--- NOTE | ~2016-12-31 | CR72 ---
[facility] A Service of [facility] RADIOLOGY TEXT RESULTS PATIENT: WHITNEY RONDON [facility] UNIT #: [id number] AGE: [address]: Tavo Yang MD SEX: F ORDER DR: [id number] [facility] [address]. [place], [place] [address] [id number] I MR#: [id number] Acc #: [id number] NAME: WHITNEY RONDON : 1950 SEX: F STUDY DATE/TIME: 01/01/2017 5:23 UNIT: [facility] ROOM: [facility] STUDY DESCRIPTION: CR Chest Single View Portable Attending Physician: Heidi Salgado M.D. Ordering Physician: Brianna Pimentel M.D. Primary Care Physician: Eric Rosado M.D. MEDICAL IMAGING REPORT This report is preliminary unless electronic signature is present EXAM Portable chest, 01/01/2017. HISTORY Respiratory failure and hypotension for 1 day. Shortness of breath. COMPARISON Chest 01/01/2017 at 0056 hours. FINDINGS Frontal chest demonstrates tubes and lines in stable position. Patchy bilateral pulmonary opacities and subsegmental atelectasis/infiltrate in the right midlung field are unchanged. No pneumothorax. Heart size and mediastinum stable. IMPRESSION 1. Tubes and lines appear stable. No pneumothorax. 2. No change in patchy bilateral pulmonary opacities with subsegmental atelectasis/infiltrate in the right mid lung field. Dictated by... Ankit Townsend M.D. THIS IS AN ELECTRONICALLY VERIFIED REPORT Ankit Townsend M.D. at 01/02/2017 8:52 AM ARIELA/miya TD: 01/01/2017 07:23 JOB #: [id number] MEDICAL IMAGING REPORT [facility] A Service [facility] RADIOLOGY TEXT RESULTS PATIENT: WHITNEY RONDON [facility]-12 : 52 UNIT #: [id number] AGE: [address]: Tavo Yang MD SEX: F ORDER DR: Page 1 of 1 COPY
--- NOTE | ~2016-12-31 | CR72 ---
[facility] A Service of [facility] RADIOLOGY TEXT RESULTS PATIENT: WHITNEY RONDON LOCATION: [address] : [birth year] UNIT #: [id number] AGE: [address]: Tavo Yang MD SEX: F ORDER DR: [id number] [facility] [address] [facility]. [place], [place] [address] [id number] I MR#: [id number] Acc #: [id number] NAME: WHITNEY RONDON : 1950 SEX: F STUDY DATE/TIME: 12/31/2016 12:52 UNIT: [facility] ROOM: [facility] STUDY DESCRIPTION: CR Chest Single View Portable Attending Physician: Heidi Salgado M.D. Ordering Physician: Lucio Green M.D. Primary Care Physician: Eric Rosado M.D. MEDICAL IMAGING REPORT This report is preliminary unless electronic signature is present EXAM Portable chest, 12/31/2016. HISTORY 66-year-old female with shortness of air and congestion beginning today. COMPARISON Chest, 12/11/2016. FINDINGS Frontal chest demonstrates worsening bilateral perihilar opacities and right upper lobe infiltrate. Findings could be secondary to early congestive failure versus pneumonia. No pneumothorax. Heart size is upper limits. IMPRESSION Slight interval worsening bilateral perihilar opacities and right upper lobe infiltrate. Differential includes early pneumonia versus congestive failure. Dictated by... Ankit Townsend M.D. THIS IS AN ELECTRONICALLY VERIFIED REPORT Ankit Townsend M.D. at 01/02/2017 9:00 AM ARIELA/miya TD: 12/31/2016 13:10 JOB #: [id number] MEDICAL IMAGING REPORT [facility] A Service [facility] RADIOLOGY TEXT RESULTS PATIENT: WHITNEY RONDON LOCATION: [facility] : 54 UNIT #: [id number] AGE: [address]: Tavo Yang MD SEX: F ORDER DR: Page 1 of 1 COPY
--- NOTE | ~2016-12-31 | CR72 ---
[facility] A Service of [facility] & [facility] RADIOLOGY TEXT RESULTS PATIENT: WHITNEY RONDON LOCATION: [place] [address]-12 : 52 UNIT #: [id number] AGE: [address]: Heidi Salgado MD SEX: F ORDER DR: [id number] [facility] [address] [place], [place] [address] [id number] I MR#: [id number] Acc #: [id number] NAME: WHITNEY RONDON : 1950 SEX: F STUDY DATE/TIME: 01/01/2017 0:56 UNIT: [facility] ROOM: [facility] STUDY DESCRIPTION: CR Chest Single View Portable Attending Physician: Aries Acevedo M.D. Ordering Physician: Shaun Echols M.D. Primary Care Physician: Eric Rosado M.D. MEDICAL IMAGING REPORT This report is preliminary unless electronic signature is present EXAM Single view of the chest INDICATIONS Respiratory failure. FINDINGS Single portable AP view of the chest compared to 12/31/2016. The endotracheal tube has been positioned approximately 4 cm above the betzaida. Patchy bilateral airspace opacities are similar to the prior study. IMPRESSION Endotracheal tube approximately 4 cm above the betzaida. Dictated by... Antonio Gavin M.D. THIS IS AN ELECTRONICALLY VERIFIED REPORT Antonio Gavin M.D. at 01/01/2017 10:37 PM RPC/rnr TD: 01/01/2017 03:05 JOB #: [id number] MEDICAL IMAGING REPORT Page 1 of 1 COPY
--- NOTE | ~2016-12-31 | CO ---
Unit #: [id number] #: [id number] Patient: WHITNEY RONDON [id number] [address] [address] [id number] I MR#: [id number] NAME: WHITNEY RONDON ROOM: [facility]2 Age: 66 Sex: F Admission Date: 12/31/2016 : 1950 Attending Physician: Heidi Salgado M.D. Primary Care Physician: Eric Rosado M.D. Consultation Date: 12/31/2016 CONSULTATION REPORT NEPHROLOGY CONSULTATION The patient was seen and examined on 12/31/2016. REASON FOR CONSULTATION TENA. HISTORY OF PRESENT ILLNESS The patient is a 66-year-old woman, history of hypertension, history of recent abdominal surgery, history of GERD, fibromyalgia, chronic back pain, asthma, bipolar disorder, brought into the emergency room by family with altered mental status, lethargic, weakness, was found to have acute renal failure, BUN elevated to 76, creatinine 2.4, potassium 5.4 with elevated white cell count. The patient also had respiratory failure, acute respiratory acidosis, pH was 7.26, pCO2 56, pO2 52. The patient was hypotensive, blood pressure 70-80 systolic, was given three liters of IV fluids normal saline bolus. The patient was placed on BiPAP mask. Continue to be acidotic with permanent persistent respiratory acidosis. Subsequently, I was asked to see the patient for acute renal failure, hyperkalemia. As per pulmonary, when I examined the patient was being intubated because of persistent respiratory acidosis. PAST MEDICAL HISTORY History of hypertension, GERD, dystonia, fibromyalgia, chronic back pain, history of asthma, bipolar disorder. SURGICAL HISTORY Abdominal cholecystectomy, PCI, bilateral salpingo-oophorectomy, carpal tunnel release surgery, appendectomy, neuroma release, urge incontinence treated with cystoscopy and Botox injections, tonsillectomy. SOCIAL HISTORY The patient denies any drinking as per family but has a history of lifelong smoking. FAMILY HISTORY No history of hemodialysis. ALLERGIES Reglan, Cipro, sulfa, methadone, influenza. ROUTINE HOME MEDICATIONS 1. Morphine 2. Ambien Unit #: [id number] #: [id number] Patient: WHITNEY RONDON 3. Lisinopril 4. Valium REVIEW OF SYSTEMS The patient is not able to give any history, most of the history obtained from medical records. DIAGNOSTIC STUDIES Labs reviewed as mentioned above. PHYSICAL EXAMINATION VITAL SIGNS: Initial blood pressure was 74/54, temperature 97.7, pulse 87, respiratory rate 12. Repeat blood pressure currently on Levophed is around 115/70. HEENT: Head: Normocephalic. The patient is on BiPAP mask. NECK: Supple. JVD negative. No carotid bruits. No cervical lymphadenopathy. No thyromegaly. LUNGS: Bilateral rhonchi. HEART: S1 and S2 audible. No murmur. No gallop. ABDOMEN: Soft. EXTREMITIES: No edema. CONTROL ENGINEER: No focal deficit appreciated. ASSESSMENT 1. Acute renal failure, most likely secondary to ATN with prerenal septicemia, hypotension. The patient was on Riley inhibitors. 2. Hyperkalemia, secondary to renal failure with Riley inhibitors. 3. Respiratory acidosis. 4. Pneumonia. 5. Sepsis. 6. Urinary tract infection. PLAN Will stop Riley inhibitors. The patient has already received three liters of normal saline bolus. Hyperkalemia has improved after IV fluids. Will start the patient on IV fluid half normal saline with sodium bicarb 75 mEq at 100 mL an hour. Monitor intake and output, daily weight, repeat labs in a.m. The patient is being intubated because of persistent respiratory failure. Will repeat chest x-ray in the a.m. Follow up this patient closely. Thanks for the consultation. Dictated by... May Montano/nikos TD: 01/01/2017 11:24 JOB #: [id number] Unit #: [id number] #: [id number] Patient: WHITNEY RONDON CONSULTATION REPORT Page 1 of 1 X Shaun Echols MD X CONSULTATION REPORT
--- NOTE | ~2016-12-31 | CR63 ---
[facility] A Service of [facility] & [facility] RADIOLOGY TEXT RESULTS PATIENT: WHITNEY RONDON LOCATION: [facility] 55-01 : 52 UNIT #: [id number] AGE: [address]: Anurag Bush MD SEX: F ORDER DR: [id number] [facility] [address] [place], [place] [address] [id number] I MR#: [id number] Acc #: [id number] NAME: WHITNEY RONDON : 1950 SEX: F STUDY DATE/TIME: 01/04/2017 7:26 UNIT: [facility] ROOM: [facility] STUDY DESCRIPTION: CR Chest 2 View Attending Physician: Anurag Bush M.D. Ordering Physician: Brianna Pimentel M.D. Primary Care Physician: Eric Rosado M.D. MEDICAL IMAGING REPORT This report is preliminary unless electronic signature is present EXAM Chest PA and lateral 01/04/2017 HISTORY Shortness of breath and pneumonia since 12/31/2016. Asthma. Smoking history. Benign essential hypertension. FINDINGS The heart is enlarged but stable compared with 01/03/2017. The nasogastric tube has been removed. Right internal jugular central line is unchanged. There has been a slight decrease in the infiltrate in the right upper lobe. Poor inspiratory result with atelectatic changes at the lung bases. There are no pleural effusions. IMPRESSION 1. Removal of nasogastric tube compared with 01/03/2017. 2. Slight decrease in the infiltrate in the right upper lobe. Dictated by... Arya Borden M.D. THIS IS AN ELECTRONICALLY VERIFIED REPORT Arya Borden M.D. at 01/05/2017 8:02 AM CHARMAINE/berkley TD: 01/04/2017 09:08 JOB #: [id number] MEDICAL IMAGING REPORT Page 1 of 1 COPY
--- NOTE | ~2016-12-31 | CO ---
Unit #: [id number] #: [id number] Patient: WHITNEY RONDON [id number] [address] [address] [id number] I MR#: [id number] NAME: WHITNEY RONDON ROOM: [facility] Age: 66 Sex: F Admission Date: 12/31/2016 : 1950 Attending Physician: Heidi Salgado M.D. Primary Care Physician: Eric Rosado M.D. CONSULTATION REPORT REASON FOR CONSULTATION Critical care management. CHIEF COMPLAINT Altered mental status and lethargy, and weakness. HISTORY OF PRESENT ILLNESS Paoyh-stvp-sfik-old female, with past medical history of dystonia of the right arm and leg, chronic pain, elevated blood pressure, and presents to the emergency room with altered mental status and was found to be hypoxic and placed on BiPAP, and lethargy. I am seeing the patient at the bedside, currently, is on BiPAP responding and telling me her name. REVIEW OF SYSTEMS Unobtainable. The patient is on BiPAP. PAST MEDICAL HISTORY 1. Hypertension. 2. Acute kidney injury. 3. Gastroesophageal reflux disease. 4. Fibromyalgia. 5. Chronic back pain. 6. History of asthma. 7. Bipolar disorder. PAST SURGICAL HISTORY 1. Laparoscopic cholecystectomy. 2. Carpal tunnel surgery. 3. Cystoscopy. SOCIAL HISTORY Nonsmoker, no alcohol, and no drug abuse. MEDICATIONS 1. Morphine 2. Ambien 3. Lisinopril 4. Valium 5. Amitriptyline 6. Ditropan 7. Zoloft 8. Xanax 9. Omnicef 10. Prednisone Unit #: [id number] #: [id number] Patient: WHITNEY RONDON PHYSICAL EXAMINATION VITAL SIGNS: Temperature 98, pulse 87, respiration 12, and blood pressure 195/65. NEUROLOGIC: Awake, alert. CVS: S1 plus and S2 plus. CHEST: Bilateral air entry. Bilateral mild rhonchi. GI: Nontender. Soft. Bowel sounds are positive. EXTREMITIES: No edema. SKIN: No rash. LYMPHATICS: No lymphadenopathy. DIAGNOSTIC STUDIES Labs and imaging has been reviewed. ASSESSMENT/PLAN 1. Acute hypoxic hypercapnic respiratory failure. 2. Pneumonia. 3. Sepsis. 4. Acute kidney injury. 5. Hypertension. Plan is to give IV fluids, broad spectrum IV antibiotics, stress dose steroid, and continue BiPAP, repeat blood gases and we will continue to monitor the patient and will follow the imaging and culture results. Please see orders for detailed plan. Thank you very much for this consultation, we will continue to monitor the patient. Dictated by... May Valerio TD: 01/01/2017 10:13 JOB #: [id number] CONSULTATION REPORT Page 1 of 1 X Brianna Pimentel MD X CONSULTATION REPORT
--- NOTE | ~2016-12-31 | CR72 ---
[facility] A Service of [facility] RADIOLOGY TEXT RESULTS PATIENT: WHITNEY RONDON LOCATION: [address]12 : [birth year] UNIT #: [id number] AGE: [address]: Anurag Bush MD SEX: F ORDER DR: [id number] [facility] [address] [place], [place] [address] [id number] MR#: [id number] Acc #: [id number] NAME: WHITNEY RONDON : 1950 SEX: F STUDY DATE/TIME: 01/02/2017 6:32 UNIT: [facility] ROOM: [facility] STUDY DESCRIPTION: CR Chest Single View Portable Attending Physician: Heidi Salgado M.D. Ordering Physician: Brianna Pimentel M.D. Primary Care Physician: Eric Rosado M.D. MEDICAL IMAGING REPORT This report is preliminary unless electronic signature is present EXAM Portable chest 01/02/2017 COMPARISON 01/01/2017. HISTORY Respiratory failure, hypotension for 2 days. FINDINGS AP portable view is obtained. Tracheostomy tube and nasoenteric tube are in good position. Right IJ line terminates in the SVC. Heart size in the patient is normal. There is a left perihilar infiltrate and a right perihilar infiltrate. These have not changed significantly. CONCLUSION Bilateral perihilar infiltrates. Tubes in good position. Dictated by... Miguelito Gibbs M.D. THIS IS AN ELECTRONICALLY VERIFIED REPORT Miguelito Gibbs M.D. at 01/03/2017 5:06 PM JEAN MARIE/berkley TD: 01/02/2017 07:29 JOB #: [id number] MEDICAL IMAGING REPORT Page 1 of 1 COPY
--- NOTE | ~2016-12-31 | CR72 ---
[facility] A Service of [facility] & [facility] RADIOLOGY TEXT RESULTS PATIENT: WHITNEY RONDON LOCATION: [facility] CICCU2-12 : [birth year] UNIT #: [id number] AGE: [address]: KARLEE ACEVEDO MD SEX: F ORDER DR: [id number] [facility] [address] [place], [place] [address] [id number] MR#: [id number] Acc #: [id number] NAME: WHITNEY RONDON : 1950 SEX: F STUDY DATE/TIME: 12/31/2016 19:58 UNIT: [facility] ROOM: 28643 STUDY DESCRIPTION: CR Chest Single View Portable Attending Physician: Karlee Acevedo M.D. Ordering Physician: Lucio Green M.D. Primary Care Physician: Eric Rosado M.D. MEDICAL IMAGING REPORT This report is preliminary unless electronic signature is present Frontal chest, 12/31/2016. INDICATION 66-year-old female for central line placement. Symptoms began an hour ago. ; Frontal chest compared with 1252 hours. FINDINGS New central line from the right neck approach terminates at the distal SVC level. There is no distinct pneumothorax. Cardiac silhouette within normal limits. Opacities in the midlung and perihilar lung on the right are stable. No new opacities on the left. No new effusion. IMPRESSION 1. No significant change in the appearance of the chest. New central line from a right-sided approach terminates at the distal SVC level. No pneumothorax. Dictated by... Avinash Yost M.D. THIS IS AN ELECTRONICALLY VERIFIED REPORT Avinash Yost M.D. at 12/31/2016 11:13 PM Chey TD: 12/31/2016 22:03 JOB #: [id number] MEDICAL IMAGING REPORT Page 1 of 1 COPY
--- NOTE | ~2016-12-31 | EKG ---
PATIENT: WHITNEY RONDON UNIT #: [id number] Ventricular Rate: 84 BPM Atrial Rate: 84 BPM P-R Interval: 164 ms QRS Duration: 78 ms Q-T Interval: 348 ms QTC Calculation(Bezet): 411 ms P [place]: 57 degrees Calculated R [place]: 27 degrees Calculated T [place]: -141 degrees Diagnosis Line: Normal sinus rhythm Diagnosis Line: T wave abnormality, consider inferolateral Diagnosis Line: ischemia Diagnosis Line: Abnormal ECG Diagnosis Line: When compared with ECG of 18-DEC-2016 16:45, Diagnosis Line: QT has shortened Diagnosis Line: Confirmed by GIRMA RODRIGUEZ MD ([id number]) on Diagnosis Line: 12/31/2016 4:33:36 PM INTERPRETING MD: JENNIFER AGUILAR
--- NOTE | ~2016-12-31 | HP ---
Unit #: [id number] #: [id number] Patient: WHITNEY RONDON [id number] [facility] [address] [place], [place] [address] [id number] I MR#: [id number] NAME: WHITNEY RONDON ROOM: 84352 Age: 66 Sex: F Admission Date: 12/31/2016 : 1950 Attending Physician: Aries Acevedo M.D. Primary Care Physician: Eric Rosado M.D. HISTORY AND PHYSICAL CHIEF COMPLAINT Hypertension, altered mental status. HISTORY OF PRESENT ILLNESS The patient is a 56-year-old female with dystonia affecting the right arm and leg, chronic pain, elevated blood pressure, brought to the emergency room status post altered mental status. The patient was recently discharged from [facility] with abdominal obstruction status post release of adhesions. The patient was in the [facility] at [facility] until last Monday. The patient was sent home on Monday. The patient went to see the PCP on . The patient received the steroid injection in the right shoulder. Since then, the patient has been more sleepy and has associated with this a light cough. The patient was referred to the ER with the low blood pressure with the systolic 74. The patient is started on the BiPAP with hypoxic with a pH of 7.26, pO2 of 56, pCO2 of 52. The patient is being admitted for the above reasons. The patient's chest x-ray shows an early pneumonia. PAST MEDICAL HISTORY History of hypotension and acute kidney injury, high blood pressure, GERD, dystonia, fibromyalgia, chronic back pain, history of asthma, bipolar disorder. PAST SURGICAL HISTORY Abdominal lap juan, PCI, THBSO, bilateral carpal tunnel release, appendectomy, neuroma release, urge incontinence treated with cystoscopy and Botox injection and tonsillectomy. SOCIAL HISTORY The patient lives with her brother. She stated that she was previously able to use a walker, now is wheelchair bound. She does not drink alcohol. She is a lifelong nonsmoker. FAMILY HISTORY Positive for coronary artery disease, diabetes and hypertension. ALLERGIES Reglan, Cipro, sulfa, methadone and influenza vaccine. HOME MEDICATION 1. Morphine. 2. Ambien. 3. Lisinopril. 4. Valium. Unit #: [id number] #: [id number] Patient: WHITNEY RONDON 5. Amitriptyline. 6. Ditropan. 7. Zoloft. 8. Xanax. 9. Omnicef. 10. Prednisone. REVIEW OF SYSTEMS A 14-point review of systems performed and only pertinent positive findings are described above. Remaining are negative. PHYSICAL EXAMINATION GENERAL APPEARANCE: The patient is lying on a bed not in acute distress. The patient is on a BiPAP. VITAL SIGNS: Temperature 97.7. Pulse 87. Respiratory 12. Blood pressure 74/54. Sating 95% at room air. HEENT: Head: Atraumatic, normocephalic. ENT: Pupils equal, round, reacting to light and accommodation. Extraocular movements are intact. Dry mucous membrane. NECK: Supple and rotated towards the right. LUNGS: Decreased air entry at the bases. Positive for rhonchi. HEART: Regular rate and rhythm. ABDOMEN: Status post lap juan with the incision clean, dry and intact. Distended. EXTREMITIES: Without edema. NEUROLOGIC: The patient is alert, awake, oriented. Neck is rotated to the right. She has spasm contractions of the right hand. DIAGNOSTIC STUDIES LABORATORY: pH 7.26, pCO2 52.2, pO2 56.5, oxygen saturation 87 at 21% FIO2. Glucose 80, BUN 76, creatinine 2.7, sodium 129, potassium 5.4, chloride 92, bicarb 24, calcium 9.6, total protein 7.7, AST 23, ALT 21, alkaline phosphatase 123. BNP 58. Lactic acid 1.1. WBC 10.8, hemoglobin 11.8, hematocrit 36.5, platelets 383. UA is pending. IMAGING: Chest x-ray shows a slight worsening of the bilateral perihilar infiltrate in the right upper lobe concerning for early pneumonia. CARDIOVASCULAR: EKG shows normal sinus rhythm at a rate of 84 beats per minute and nonspecific T wave abnormalities and inferolateral ischemia. ASSESSMENT 1. Acute respiratory failure with hypoxia and hypercapnia. 2. Pneumonia. 3. Sepsis. 4. Acute kidney injury. 5. (1) . PLAN To admit the patient to inpatient to the ICU. The patient will be on IV antibiotics with cefepime and Zithromax. The patient will have a Renal consult for acute kidney injury and the (2) and hyponatremia. Critical care with Dr. Pimentel, has seen in the past. Repeat the labs again in the morning. Fluid replenishment with sepsis protocol and further labs as more lab results are available. Unit #: [id number] #: [id number] Patient: WHITNEY RONDON Dictated by May Valadez TD: 12/31/2016 17:47 JOB #: [id number] HISTORY AND PHYSICAL Page 1 of 1 X X HISTORY AND PHYSICAL
--- NOTE | ~2016-12-31 | A ---
[facility] Nutrition Therapy DATE: 01/02/17 Patient: WHITNEY RONDON Physician: GIBSON Address: [address] [place] [address] Room/Bed: [address], Zip: [place] [address] Admit Date: 12/31/16 Date of : [birth year] Height: 5 5 Weight: 176 80 NUTRITIONAL ASSESSMENT: REASON: ENTERAL NUTRITION SUPPORT ASSESSMENT, CONSULT PT IS 66 Y.O. FEMALE ADMITTED FOR HYPOTENSION, ACUTE RESPIRATORY FAILURE, PNA, SEPSIS, TENA, AMS PMH: HTN, GERD, FIBROMYALAGIA, ASTHMA, BIPOLAR DISORDER, RECENT ABD SURGERY, DYSTONIA Anthropometrics: 5'5", WT: 176# (80 KG), BMI: 29.3, 141%IBW Labs: GLU: 145, BUN: 34, CA+:7.9, ALB: 2.5, K+:3.4, PHOS: 2.1 Meds: FENTANYL, VERSED, NACL, PROTONIX I/O & Bowel function: 4364/1500 Skin Integrity: NO KNOWN SKIN ISSUES EDEMA: BLE PITTING EDEMA; PELVIC/KERRY GENERAL EDEMA Estimated Nutrition Needs: 4850-0820 KCAL (20-25 KCAL/KG BW) 72-90 G PRO (0.9-1.1 G PRO/KG BW) FLUID CONSISTENT W/KCAL NEEDS OR MANAGE PER MD Assessment: CHART REVIEWED AND EVENTS NOTED. PT SEEN FOR CONSULT RE: ENTERAL NUTRITION SUPPORT. PT CURRENTLY INTUBATED AND SEDATED 2' DX ABOVE. NO FAMILY IN ROOM AT THIS TIME. PER RN AND CHART, PT HAS DHT AND ENTERAL NUTRITION SUPPORT OF JEVITY 1.5 ORDERED MY MD (GOAL OF 40 ML/HR). PT NPO THIS AM 2' BRONCHOSCOPY SCHEDULED. PLANS IN PLACE TO RE-START EN LATER TODAY. RD TO FOLLOW. SEE RECOMMENDATIONS BELOW. Dx: INADEQUATE PROTEIN-ENERGY INTAKE R/T DX, CURRENT CLINICAL CONDITION AEB NPO STATUS. Intervention: 1. NPO 2. RD CONSULT Monitoring, Evaluation and Goals: 1. ENTERAL NUTRITION SUPPORT; PROVIDE >80% ESTIMATED NUTRIENT NEEDS AT GOAL X 24 HOURS 2. WEIGHTS; PROMOTE GRADUAL WEIGHT LOSS TOWARDS HEALTHY BMI 3. LABS; WNL MONITOR: -TF RATE/RESIDUALS -WEIGHTS [facility] Nutrition Therapy DATE: 01/02/17 Patient: WHITNEY RONDON Physician: GIBSON Address: [address] [place] [address] Room/Bed: [address], Zip: [place] [address] Admit Date: 12/31/16 Date of : [birth year] Height: 5 5 Weight: 176 80 -EXTUBATION -LABS Recommendations: 1. RECOMMEND TO REPLETE LYTES (K+ AND PHOS) 2. ONCE MEDICALLY FEASIBLE, RE-INITIATE ENTERAL NUTRITION SUPPORT OF JEVITY 1.5 @ 20 ML/HR, ADVANCE 10 ML q 8 HOURS TO GOAL RATE OF 55 ML/HR -PROVIDES 1980 KCAL, 84 G PRO, 1003 ML FREE H20 ADD FREE H20 FLUSHES PER MD 3. ONCE PT EXTUBATED, ADVANCE DIET PER GUEST SERVICES REPRESENTATIVE FOR SAFE SWALLOW + HH DIET RD WILL F/U PER PROTOCOL PT IS MOD/SEVERELY COMPROMISED Respectfully, BINA PRADHAN MS, RD, LD Food and Nutritional Services [facility] cc: client file
[2016-12-31 14:25] LABS: BASOPHIL% 0.2 % (0-2.5); EOSINOPHIL% 9.1 % (0.0-7.0); HEMATOCRIT 36.5 % (35.0-45.0); HEMOGLOBIN 11.8 gm/dL (12.0-16.0); LYMPHOCYTE# 2.1 X10e3 (1.0-3.5); LYMPHOCYTE% 19.4 % (17.0-45.0); MEAN CELL VOLUME 84.3 FL (83-96); MEAN CORPUSCULAR HEMOGLOBIN 27.2 PG (28-34); MEAN CORPUSCULAR HGB CONC 32.3 g/dL (30-36); MEAN PLATELET VOLUME 8.4 FL (6.5-11.5); MONOCYTE# 0.8 X10e3 (0-1.0); MONOCYTE% 7.4 % (3.0-12.0); NEUTROPHIL# 6.9 X10e3 (1.5-7.1); NEUTROPHIL% 63.9 % (40-75); PLATELET COUNT 383 X10e3 (140-420); RED BLOOD COUNT 4.33 X10e (3.90-5.30); RED CELL DISTRIBUTION WIDTH 18.4 % (11.0-15.5); WHITE BLOOD COUNT 10.8 X10e3 (4.0-10.5)
[2016-12-31 14:27] LABS: ARTERIAL BLOOD GAS CARBOXY HB 1.1 %sat (0.0-9.0); ARTERIAL BLOOD GAS HCO3 23.6 mmol/L; ARTERIAL BLOOD GAS MET HB 0.7 %sat (0.0-2.0); ARTERIAL BLOOD GAS pH 7.262 (7.350-7.450)
[2016-12-31 14:31] LABS: DIFF IND NO
[2016-12-31 14:32] LABS: ARTERIAL BLOOD GAS ART SITE LEFT BRACHIAL; ARTERIAL BLOOD GAS PCO2 52.2 mmHg (35.0-45.0); ARTERIAL BLOOD GAS PO2 56.5 mmHg (80.0-100); ARTERIAL DRAW? YES
[2016-12-31 14:46] LABS: ALBUMIN SERUM 3.5 g/dL (3.5-5.0); BILIRUBIN, DIRECT 0.1 mg/dL (0.0-0.2); BILIRUBIN,INDIRECT 0.3 mg/dL (0.0-0.9); BILIRUBIN,TOTAL 0.4 mg/dL (0.2-2.0); BUN/CREATININE RATIO 28.14; CALCIUM SERUM 9.6 mg/dL (8.4-10.2); CREATININE SERUM 2.7 mg/dL (0.6-1.4); GLOM FILT RATE Estimated 17.9 mL/min (>60); POTASSIUM 5.4 mmol/L (3.5-5.1); PROTEIN TOTAL SERUM 7.7 g/dL (6.0-8.3)
[2016-12-31 16:17] LABS: POC - CKMB <1.0 ng/mL (0.0-7.9); POC - TROPONIN <0.05 ng/mL (<=0.05)
[2016-12-31 17:30] LABS: URINE SOURCE CLEAN CATCH
[2016-12-31 17:38] LABS: URINE APPEARANCE TURBID; URINE BILIRUBIN NEG (NEG); URINE BLOOD 2+ (NEG); URINE COLOR YELLOW; URINE GLUCOSE NEG (NEG); URINE KETONE TRACE (NEG); URINE LEUKOCYTE ESTERASE 3+ (NEG); URINE NITRATE NEG (NEG); URINE PROTEIN 1+ (NEG); URINE SPECIFIC GRAVITY 1.014 (1.003-1.035); URINE UROBILINOGEN 0.2 MG/DL (NEG)
[2016-12-31 17:40] LABS: CULTURE INDICATED? YES; URBCS1 AUWI 25-50 /[HPF] (0-2); URINE BACTERIA AUWI NEG (NEGATIVE); URINE SQUAMOUS EPITHELIAL CELL MOD /[HPF]; UWBCS1 AUWI INNUM (0-5)
[2016-12-31 21:02] LABS: BUN/CREATININE RATIO 29.54; CALCIUM SERUM 8.2 mg/dL (8.4-10.2); CREATININE SERUM 2.2 mg/dL (0.6-1.4); GLOM FILT RATE Estimated 22.9 mL/min (>60); POTASSIUM 4.8 mmol/L (3.5-5.1)
[2016-12-31 22:33] LABS: ARTERIAL BLD GAS O2 SATURATION 97.4 % (90.0-100.0); ARTERIAL BLOOD GAS CARBOXY HB 0.8 %sat (0.0-9.0); ARTERIAL BLOOD GAS HCO3 20.7 mmol/L; ARTERIAL BLOOD GAS MET HB 0.9 %sat (0.0-2.0)
[2016-12-31 22:38] LABS: ARTERIAL BLOOD GAS ALLEN TEST NORMAL; ARTERIAL BLOOD GAS ART SITE RIGHT RADIAL; ARTERIAL BLOOD GAS pH 7.183 (7.350-7.450); ARTERIAL DRAW? YES
[2017-01-01 00:09] LABS: ARTERIAL BLD GAS O2 SATURATION 96.4 % (90.0-100.0); ARTERIAL BLOOD GAS CARBOXY HB 0.5 %sat (0.0-9.0); ARTERIAL BLOOD GAS HCO3 20.7 mmol/L; ARTERIAL BLOOD GAS MET HB 0.8 %sat (0.0-2.0)
[2017-01-01 00:12] LABS: ARTERIAL BLOOD GAS ALLEN TEST NORMAL; ARTERIAL BLOOD GAS ART SITE RIGHT RADIAL; ARTERIAL BLOOD GAS DELIVERY BIPAP 20/4; ARTERIAL BLOOD GAS PCO2 56.4 mmHg (35.0-45.0); ARTERIAL BLOOD GAS pH 7.173 (7.350-7.450); ARTERIAL DRAW? YES
[2017-01-01 01:35] LABS: ARTERIAL BLD GAS O2 SATURATION 98.3 % (90.0-100.0); ARTERIAL BLOOD GAS CARBOXY HB 0.4 %sat (0.0-9.0); ARTERIAL BLOOD GAS HCO3 18.6 mmol/L; ARTERIAL BLOOD GAS MET HB 0.8 %sat (0.0-2.0); ARTERIAL BLOOD GAS PCO2 36.1 mmHg (35.0-45.0); ARTERIAL BLOOD GAS pH 7.321 (7.350-7.450)
[2017-01-01 01:37] LABS: ARTERIAL BLOOD GAS ALLEN TEST NORMAL; ARTERIAL BLOOD GAS ART SITE RIGHT RADIAL; ARTERIAL BLOOD GAS DELIVERY VENT; ARTERIAL BLOOD GAS VENT MODE AC; ARTERIAL DRAW? YES
[2017-01-01] MEDS ORDERED: ASPIRIN81 MG PO (02:07)
[2017-01-01] MEDS ORDERED: OMEPRAZOLE10 M1 PO (02:07)
[2017-01-01] MEDS ORDERED: SUMATRIPTAN SUC50 M1 PO (02:14)
[2017-01-01] MEDS ORDERED: MIRALAX17 GM PO (02:15)
[2017-01-01 05:23] LABS: BASOPHIL% 0.4 % (0-2.5); EOSINOPHIL# 0.7 X10e3 (0-0.7); EOSINOPHIL% 7.8 % (0.0-7.0); HEMATOCRIT 32.4 % (35.0-45.0); HEMOGLOBIN 10.5 gm/dL (12.0-16.0); LYMPHOCYTE# 1.6 X10e3 (1.0-3.5); LYMPHOCYTE% 17.5 % (17.0-45.0); MEAN CELL VOLUME 83.6 FL (83-96); MEAN CORPUSCULAR HEMOGLOBIN 27.1 PG (28-34); MEAN CORPUSCULAR HGB CONC 32.4 g/dL (30-36); MEAN PLATELET VOLUME 8.2 FL (6.5-11.5); MONOCYTE# 0.7 X10e3 (0-1.0); MONOCYTE% 7.4 % (3.0-12.0); NEUTROPHIL# 6.1 X10e3 (1.5-7.1); NEUTROPHIL% 66.9 % (40-75); PLATELET COUNT 358 X10e3 (140-420); RED BLOOD COUNT 3.88 X10e (3.90-5.30); RED CELL DISTRIBUTION WIDTH 18.2 % (11.0-15.5); WHITE BLOOD COUNT 9.1 X10e3 (4.0-10.5)
[2017-01-01 05:47] LABS: DIFF IND NO
[2017-01-01 06:35] LABS: ALBUMIN SERUM 2.8 g/dL (3.5-5.0); BILIRUBIN,TOTAL 0.9 mg/dL (0.2-2.0); BUN/CREATININE RATIO 39.23; CALCIUM SERUM 8.1 mg/dL (8.4-10.2); CREATININE SERUM 1.3 mg/dL (0.6-1.4); GLOM FILT RATE Estimated 43.3 mL/min (>60); POTASSIUM 4.2 mmol/L (3.5-5.1); PROTEIN TOTAL SERUM 6.5 g/dL (6.0-8.3)
[2017-01-01 06:38] LABS: ARTERIAL BLOOD GAS CARBOXY HB 0.5 %sat (0.0-9.0); ARTERIAL BLOOD GAS HCO3 19.2 mmol/L; ARTERIAL BLOOD GAS PCO2 28.3 mmHg (35.0-45.0)
[2017-01-01 06:39] LABS: ARTERIAL BLOOD GAS ALLEN TEST NORMAL; ARTERIAL BLOOD GAS ART SITE RIGHT RADIAL; ARTERIAL DRAW? YES
[2017-01-01 06:40] LABS: ARTERIAL BLOOD GAS DELIVERY VENT; ARTERIAL BLOOD GAS VENT MODE AC
[2017-01-02 04:24] LABS: ARTERIAL BLD GAS O2 SATURATION 97.3 % (90.0-100.0); ARTERIAL BLOOD GAS CARBOXY HB 0.4 %sat (0.0-9.0); ARTERIAL BLOOD GAS HCO3 22.2 mmol/L; ARTERIAL BLOOD GAS MET HB 0.6 %sat (0.0-2.0); ARTERIAL BLOOD GAS PCO2 34.6 mmHg (35.0-45.0); ARTERIAL BLOOD GAS PO2 86.6 mmHg (80.0-100); ARTERIAL BLOOD GAS pH 7.415 (7.350-7.450)
[2017-01-02 04:28] LABS: BASOPHIL% 0.2 % (0-2.5); DIFF IND NO; EOSINOPHIL% 0.3 % (0.0-7.0); HEMATOCRIT 27.9 % (35.0-45.0); HEMOGLOBIN 9.2 gm/dL (12.0-16.0); LYMPHOCYTE# 1.2 X10e3 (1.0-3.5); LYMPHOCYTE% 19.8 % (17.0-45.0); MEAN CORPUSCULAR HGB CONC 32.9 g/dL (30-36); MEAN PLATELET VOLUME 7.7 FL (6.5-11.5); MONOCYTE# 0.2 X10e3 (0-1.0); NEUTROPHIL# 4.5 X10e3 (1.5-7.1); NEUTROPHIL% 75.7 % (40-75); PLATELET COUNT 266 X10e3 (140-420); RED CELL DISTRIBUTION WIDTH 18.4 % (11.0-15.5); WHITE BLOOD COUNT 5.9 X10e3 (4.0-10.5)
[2017-01-02 04:40] LABS: ARTERIAL BLOOD GAS ALLEN TEST NORMAL; ARTERIAL BLOOD GAS ART SITE LEFT RADIAL; ARTERIAL BLOOD GAS DELIVERY VENT; ARTERIAL BLOOD GAS VENT MODE AC; ARTERIAL DRAW? YES
[2017-01-02 04:46] LABS: ALBUMIN SERUM 2.5 g/dL (3.5-5.0); BILIRUBIN,TOTAL 0.4 mg/dL (0.2-2.0); BUN/CREATININE RATIO 37.77; CALCIUM SERUM 7.9 mg/dL (8.4-10.2); CREATININE SERUM 0.9 mg/dL (0.6-1.4); GLOM FILT RATE Estimated 67.6 mL/min (>60); MAGNESIUM 1.7 mg/dL (1.6-3.0); PHOSPHOROUS 2.1 mg/dL (2.5-4.6); POTASSIUM 3.4 mmol/L (3.5-5.1); PROTEIN TOTAL SERUM 5.8 g/dL (6.0-8.3)
[2017-01-02 10:50] LABS: BODY FLUID APPEARANCE TURBID
[2017-01-02 10:51] LABS: BF TOTAL NUCLEATED CELL COUNT 5817 CMM (0-100); BODY FLUID RBC <10000 CMM
[2017-01-02 10:52] LABS: BODY FLUID SOURCE BRONCHIAL LAVAGE
[2017-01-02 12:42] LABS: ARTERIAL BLD GAS O2 SATURATION 97.6 % (90.0-100.0); ARTERIAL BLOOD GAS CARBOXY HB 0.6 %sat (0.0-9.0); ARTERIAL BLOOD GAS HCO3 22.4 mmol/L; ARTERIAL BLOOD GAS PCO2 36.3 mmHg (35.0-45.0)
[2017-01-02 12:43] LABS: ARTERIAL DRAW? YES
[2017-01-02 12:44] LABS: ARTERIAL BLOOD GAS ALLEN TEST NORMAL; ARTERIAL BLOOD GAS ART SITE RIGHT RADIAL; ARTERIAL BLOOD GAS DELIVERY VENT; ARTERIAL BLOOD GAS VENT MODE CPAP
[2017-01-03 03:57] LABS: ARTERIAL BLOOD GAS CARBOXY HB 0.3 %sat (0.0-9.0); ARTERIAL BLOOD GAS MET HB 0.7 %sat (0.0-2.0); ARTERIAL BLOOD GAS PCO2 37.8 mmHg (35.0-45.0); ARTERIAL BLOOD GAS pH 7.393 (7.350-7.450)
[2017-01-03 04:08] LABS: ARTERIAL BLOOD GAS ALLEN TEST NORMAL; ARTERIAL BLOOD GAS ART SITE LEFT RADIAL; ARTERIAL BLOOD GAS DELIVERY NASAL CANNULA; ARTERIAL DRAW? YES
[2017-01-03 04:37] LABS: BASOPHIL% 0.6 % (0-2.5); EOSINOPHIL# 0.3 X10e3 (0-0.7); EOSINOPHIL% 4.5 % (0.0-7.0); HEMATOCRIT 26.5 % (35.0-45.0); HEMOGLOBIN 8.6 gm/dL (12.0-16.0); LYMPHOCYTE# 1.9 X10e3 (1.0-3.5); LYMPHOCYTE% 24.5 % (17.0-45.0); MEAN CELL VOLUME 83.1 FL (83-96); MEAN CORPUSCULAR HGB CONC 32.4 g/dL (30-36); MEAN PLATELET VOLUME 7.2 FL (6.5-11.5); MONOCYTE# 0.7 X10e3 (0-1.0); MONOCYTE% 8.9 % (3.0-12.0); NEUTROPHIL# 4.8 X10e3 (1.5-7.1); NEUTROPHIL% 61.5 % (40-75); PLATELET COUNT 265 X10e3 (140-420); RED BLOOD COUNT 3.18 X10e (3.90-5.30); RED CELL DISTRIBUTION WIDTH 18.5 % (11.0-15.5); WHITE BLOOD COUNT 7.8 X10e3 (4.0-10.5)
[2017-01-03 04:38] LABS: DIFF IND NO
[2017-01-03 07:15] LABS: ALBUMIN SERUM 2.7 g/dL (3.5-5.0); BILIRUBIN,TOTAL 0.5 mg/dL (0.2-2.0); BUN/CREATININE RATIO 31.42; CREATININE SERUM 0.7 mg/dL (0.6-1.4); GLOM FILT RATE Estimated 91.6 mL/min (>60); MAGNESIUM 1.5 mg/dL (1.6-3.0); PROTEIN TOTAL SERUM 5.2 g/dL (6.0-8.3)
[2017-01-03 07:21] LABS: POTASSIUM 2.8 mmol/L (3.5-5.1)
[2017-01-04 03:50] LABS: ARTERIAL BLD GAS O2 SATURATION 97.8 % (90.0-100.0); ARTERIAL BLOOD GAS ALLEN TEST NORMAL; ARTERIAL BLOOD GAS ART SITE RIGHT RADIAL; ARTERIAL BLOOD GAS CARBOXY HB 0.4 %sat (0.0-9.0); ARTERIAL BLOOD GAS DELIVERY NASAL CANNULA; ARTERIAL BLOOD GAS MET HB 0.8 %sat (0.0-2.0); ARTERIAL BLOOD GAS PCO2 38.1 mmHg (35.0-45.0); ARTERIAL BLOOD GAS pH 7.474 (7.350-7.450); ARTERIAL DRAW? YES
[2017-01-04 06:40] LABS: BASOPHIL# 0.1 X10e3 (0-0.3); BASOPHIL% 0.8 % (0-2.5); EOSINOPHIL% 0.3 % (0.0-7.0); HEMATOCRIT 30.4 % (35.0-45.0); LYMPHOCYTE# 1.9 X10e3 (1.0-3.5); LYMPHOCYTE% 24.9 % (17.0-45.0); MEAN CELL VOLUME 81.3 FL (83-96); MEAN CORPUSCULAR HEMOGLOBIN 26.9 PG (28-34); MEAN CORPUSCULAR HGB CONC 33.1 g/dL (30-36); MEAN PLATELET VOLUME 7.1 FL (6.5-11.5); MONOCYTE# 0.5 X10e3 (0-1.0); MONOCYTE% 7.1 % (3.0-12.0); NEUTROPHIL% 66.9 % (40-75); PLATELET COUNT 295 X10e3 (140-420); RED BLOOD COUNT 3.73 X10e (3.90-5.30); RED CELL DISTRIBUTION WIDTH 18.7 % (11.0-15.5); WHITE BLOOD COUNT 7.4 X10e3 (4.0-10.5)
[2017-01-04 07:01] LABS: DIFF IND NO
[2017-01-04 07:45] LABS: BILIRUBIN,TOTAL 0.6 mg/dL (0.2-2.0); CALCIUM SERUM 8.4 mg/dL (8.4-10.2); CREATININE SERUM 0.6 mg/dL (0.6-1.4); GLOM FILT RATE Estimated 96.3 mL/min (>60); MAGNESIUM 1.6 mg/dL (1.6-3.0); POTASSIUM 3.3 mmol/L (3.5-5.1); PROTEIN TOTAL SERUM 6.4 g/dL (6.0-8.3)
[2017-01-04 20:31] LABS: URINE APPEARANCE CLEAR; URINE BACTERIA AUWI NEG (NEGATIVE); URINE BILIRUBIN NEG (NEG); URINE BLOOD 1+ (NEG); URINE COLOR YELLOW; URINE GLUCOSE NEG (NEG); URINE KETONE NEG (NEG); URINE LEUKOCYTE ESTERASE 2+ (NEG); URINE NITRATE NEG (NEG); URINE PROTEIN NEG (NEG); URINE SPECIFIC GRAVITY 1.008 (1.003-1.035); URINE SQUAMOUS EPITHELIAL CELL NONE SEEN /[HPF]; URINE UROBILINOGEN 0.2 MG/DL (NEG)
[2017-01-04 20:36] LABS: U HYALINE CASTS AUWI 0-2 /[LPF]
[2017-01-05 11:40] LABS: ALBUMIN SERUM 3.3 g/dL (3.5-5.0); BILIRUBIN,TOTAL 0.6 mg/dL (0.2-2.0); BUN/CREATININE RATIO 16.66; CALCIUM SERUM 8.8 mg/dL (8.4-10.2); CREATININE SERUM 0.9 mg/dL (0.6-1.4); GLOM FILT RATE Estimated 67.6 mL/min (>60); MAGNESIUM 1.8 mg/dL (1.6-3.0); POTASSIUM 3.3 mmol/L (3.5-5.1); PROTEIN TOTAL SERUM 7.3 g/dL (6.0-8.3)
[2017-01-05] MEDS ORDERED: ACETAMINOPHEN325 MG PO (15:18)
[2017-01-05] MEDS ORDERED: BUMEX2 MG PO (15:22)
[2017-01-05] MEDS ORDERED: POTASSIUM CHLO20 ME2 PO (15:24)
== END 2017-01-05 16:19 | disposition home health service (06) | DRG 871 ==
LOC: CED 12:37 → C5B 16:05 → CEDOF 16:05 → CICCU2 16:05 → CEDOF 16:41 → CED 16:41 → CICCU2 23:07 → CEDOF 23:07 → CICCU2 23:07 → C5B 01-04 00:32
PROVIDERS: Emergency Medicine; Family Medicine; Internal Medicine; Internal Medicine Nephrology
PROC: 05H533Z Insertion of Infusion Device into Right Subclavian Vein, Percutaneous Approach (ICD-10-PCS; 2016-12-31)
PROC: B546ZZA Ultrasonography of Right Subclavian Vein, Guidance (ICD-10-PCS; 2016-12-31)
PROC: 30233J1 Transfusion of Nonautologous Serum Albumin into Peripheral Vein, Percutaneous Approach (ICD-10-PCS; principal; 2017-01-02 08:51)
DX: A41.9 Sepsis, unspecified organism (principal); J96.01 Acute respiratory failure with hypoxia; R65.21 Severe sepsis with septic shock; N17.9 Acute kidney failure, unspecified; J96.02 Acute respiratory failure with hypercapnia; G92 Toxic encephalopathy; J18.9 Pneumonia, unspecified organism; E86.0 Dehydration; E87.2 Acidosis; N39.0 Urinary tract infection, site not specified; G89.4 Chronic pain syndrome; I10 Essential (primary) hypertension; K21.9 Gastro-esophageal reflux disease without esophagitis; G24.9 Dystonia, unspecified; J45.909 Unspecified asthma, uncomplicated; E66.01 Morbid (severe) obesity due to excess calories; Z68.25 Body mass index [BMI] 25.0-25.9, adult; F31.9 Bipolar disorder, unspecified; M79.7 Fibromyalgia; Z99.3 Dependence on wheelchair; Z88.1 Allergy status to other antibiotic agents; Z88.7 Allergy status to serum and vaccine; Z88.2 Allergy status to sulfonamides; Z88.8 Allergy status to other drugs, medicaments and biological substances; Z83.3 Family history of diabetes mellitus; Z82.49 Family history of ischemic heart disease and other diseases of the circulatory system; E87.5 Hyperkalemia; E83.42 Hypomagnesemia; Z90.49 Acquired absence of other specified parts of digestive tract; Z90.710 Acquired absence of both cervix and uterus
CPT/HCPCS: 36415; 36556; 36600; 71010; 71020; 71250; 74000; 80048; 80053; 80076; 81003; 82140; 82308; 82553; 82607; 82803; 82947; 83605; 83735; 83880; 84100; 84484; 85025; 87040; 87070; 87086; 87102; 87106; 87116; 87205; 87206; 87252; 87254; 87278; 87449; 87493; 88108; 88305; 88312; 89051; 92610; 93005; 94002; 94003; 94640; 94660; 94760; 94761; 96365; 97110; 97163; 97167; 97530; 97535; 99291; C9113; G8978-GP; G8979-GP; G8987-GO; G8988-GO; G8996-GN; G8997-GN; G8998-GN; J0171; J0330; J0456; J0692; J0696; J1630; J1650; J1720; J1940; J2250; J2405; J3260; J3370; J3475; P9047

== ENCOUNTER 2017-01-05 23:48 | Inpatient (IN) | payer MEDICARE, BC ==
--- NOTE | ~2017-01-05 | CT2 ---
[facility] A Service of [facility] RADIOLOGY TEXT RESULTS PATIENT: WHITNEY RONDON LOCATION: C2A 239-01 : 54 UNIT #: [id number] AGE: [address]: Anurag Bush MD SEX: F ORDER DR: [id number] [facility] [address] [place], [place] [address] [id number] MR#: [id number] Acc #: [id number] NAME: WHITNEY RONDON : 1950 SEX: F STUDY DATE/TIME: 01/06/2017 11:41 UNIT: C2A ROOM: 239 STUDY DESCRIPTION: CT Abd and Pelv W Cont Attending Physician: Anurag Bush M.D. Ordering Physician: Maria Del Carmen Gutierrez M.D. Primary Care Physician: Eric Rosado M.D. MEDICAL IMAGING REPORT This report is preliminary unless electronic signature is present EXAM CT abdomen and pelvis with contrast 01/06/2017 at 1141 HISTORY General abdominal pain since last night. Previous appendectomy. Physicians order states hydronephrosis. COMPARISON CT abdomen and pelvis noncontrast 01/06/2017 at 0747 PROCEDURE Postcontrast imaging was obtained through the abdomen, including multiphase imaging in the corticomedullary, nephrographic and 3 minute delayed phases. Postcontrast imaging was extended through the pelvis at the 90-second phase of imaging. Enteric contrast was not administered. Sagittal and coronal reformatted images were obtained. This CT exam was performed with one or more of the following radiation dose reduction techniques: automatic exposure control, adjustment of mA and/or kV according to patient size, and iterative reconstruction. FINDINGS CT ABDOMEN: 5 mm cyst is seen within the right mid kidney anteriorly. 3 cysts are seen within the left kidney measuring 10 mm, 7 mm and 9 mm, respectively. No suspicious enhancing solid renal mass is identified on either side. On delayed expiratory phase imaging, there is good opacification of the bilateral renal collecting systems. Incomplete opacification of the ureters. However, no suspicious filling defects are seen within the renal collecting systems or ureters, and the gas previously seen within the left STS. [facility] A Service of [facility] RADIOLOGY TEXT RESULTS PATIENT: WHITNEY RONDON LOCATION: C2A 239-01 : [birth year] UNIT #: [id number] AGE: [address]: Anurag Bush MD SEX: F ORDER DR: renal pelvis on the study earlier today is not evident on the current exam. The urinary bladder is decompressed with a Lucero catheter. No perinephric inflammatory changes are identified. There is mild atelectatic change within the medial lung bases, but no dense consolidations are identified. The liver, gallbladder, spleen, adrenals are normal. Pancreas is mildly atrophic. Signs of prior midline laparotomy with some induration along the incision site. There is also a tiny focus of subcutaneous air with adjacent subcutaneous fat induration likely representing a site of medical injection. The unopacified bowel appears grossly nonthickened, nondilated, or inflamed. There is no free air free fluid is evident. CT PELVIS: Moderate stool burden within the rectal vault. No evidence of rectal inflammation. Hysterectomy. Small amount of air is seen within the vaginal cuff which is new since the study earlier today, may be related to recent attempts at Lucero catheterization. No active pelvic inflammatory change is identified. No acute osseous abnormalities are identified. Degenerative disc and endplate changes at L5-S1. Partial osseous fusion anteriorly at T11-12. IMPRESSION 1. The previously seen focus of air within the left renal pelvis is no longer evident. It may have represented an air bubble from attempts at Lucero catheterization or other instrumentation. There is some new air within the patients vaginal cuff since the study earlier today, which again may be related to attempts at Lucero catheterization. 2. There are small bilateral renal cysts, but no suspicious solid renal lesion or active perinephric inflammation is identified. 3. Mild medial bibasilar atelectasis. 4. Features of midline laparotomy with subcutaneous fat induration along the incision plane. Small amount of focal induration along the left anterior abdominal wall may represent site of medical injection. 5. Moderate stool burden in the rectal vault. No evidence of active bowel inflammation or obstruction. 6. Presumed hysterectomy, appendectomy. Dictated by... Bernice Raza M.D. THIS IS AN ELECTRONICALLY VERIFIED REPORT Bernice Raza M.D. at 01/10/2017 8:40 AM KAMALJIT/mohamud [facility] A Service of [facility] RADIOLOGY TEXT RESULTS PATIENT: WHITNEY RONDON LOCATION: [place] [address] : [birth year] UNIT #: [id number] AGE: [address]: Anurag Bush MD SEX: F ORDER DR: TD: 01/06/2017 17:37 JOB #: [id number] MEDICAL IMAGING REPORT Page 1 of 1 COPY
--- NOTE | ~2017-01-05 | CO ---
Unit #: [id number] #: [id number] Patient: WHITNEY RONDON [id number] [address] [place], [place] [address] [id number] MR#: [id number] NAME: WHITNEY RONDON ROOM: 67681 Age: 66 Sex: F Admission Date: 01/06/2017 : 1950 Attending Physician: Anurag Bush M.D. Primary Care Physician: Eric Rosado M.D. Consultation Date: 01/06/2017 CONSULTATION REPORT REASON FOR CONSULTATION Possible left hydronephrosis, left pyelitis. CHIEF COMPLAINT Abdominal pain. HISTORY OF PRESENT ILLNESS The patient is a 66-year-old female with a complicated medical history, who was recently discharged after being treated for hypertension and mental status changes. She represented with abdominal pain. CT of the abdomen and pelvis was performed which showed some left extrarenal pelvis versus mild left hydronephrosis with a small amount of air in her left renal pelvis. She has a white blood cell count of 17,000. She has pyuria. She has no fever. She recently was also treated for healthcare-acquired pneumonia and sepsis. She does have a history of urge incontinence. She has been treated by my partner, Dr. Kelsey, with Botox in the past. PAST MEDICAL HISTORY 1. Hypertension. 2. Gastroesophageal reflux disease. 3. Dystonia. 4. Fibromyalgia. 5. Chronic back pain. 6. Asthma. 7. Bipolar disorder. PAST SURGICAL HISTORY 1. Botox injection of the bladder. 2. Cholecystectomy. 3. Bilateral salpingo-oophorectomy. 4. PCI. 5. Carpal tunnel release. 6. Appendectomy. 7. Neuroma release. 8. Tonsillectomy. SOCIAL HISTORY Negative for alcohol. Positive for tobacco. FAMILY HISTORY Noncontributory. ALLERGIES Unit #: [id number] #: [id number] Patient: WHITNEY RONDON Documented in the chart. MEDICATIONS Documented in the chart. REVIEW OF SYSTEMS Positive for abdominal pain. Positive for nausea. Negative for gross hematuria. PHYSICAL EXAMINATION VITAL SIGNS: Temperature is 98, blood pressure 98/63. GENERAL: Patient is somewhat somnolent. HEENT: Normocephalic and atraumatic. NECK: Supple. No lymphadenopathy. LUNGS: The patient is breathing comfortably. ABDOMEN: Soft, mildly diffusely tender. Nondistended. No rebound or guarding. EXTREMITIES: No clubbing, cyanosis, or edema. DIAGNOSTIC STUDIES LABORATORY: Labs are significant for a creatinine of 1. White blood cell count 17.6. Urinalysis has pyuria and hematuria. IMAGING: CT scan of the abdomen and pelvis reviewed as above. I do not think the degree of hydronephrosis is significantly changed from November 2016. ASSESSMENT AND PLAN Acute pyelonephritis: We will place a Lucero catheter. I will place her on IV antibiotics. I do not think she is likely to be obstructed, but we will do a CT of the abdomen and pelvis with delayed cuts to the kidney to ensure drainage. I appreciate the opportunity to participate in her care. Dictated by... David Paez M.D. CARL/eliza TD: 01/06/2017 09:14 JOB #: [id number] CONSULTATION REPORT Page 1 of 1 X David Paez MD X CONSULTATION REPORT
--- NOTE | ~2017-01-05 | DS ---
Unit #: [id number] #: [id number] Patient: WHITNEY RONDON [id number] [address] [place], [place] [address] [id number] MR#: [id number] NAME: WHITNEY RONDON ROOM: 239 Age: 66 Sex: F Admission Date: 01/06/2017 : 1950 Discharge Date: 01/09/2017 Attending Physician: Anurag Bush M.D. Primary Care Physician: Eric Rosado M.D. DISCHARGE SUMMARY REASON FOR ADMISSION Intractable abdominal pain, nausea, vomiting. HISTORY OF PRESENT ILLNESS/HOSPITAL COURSE Please see H and P for complete details. Consultation was placed to Dr. Kelsey of urology services who saw and evaluated the patient secondary to aforementioned questionable abnormality within the kidney. Lucero catheter was subsequently changed at the recommendation of urology services. Urology stated that it seemed unlikely secondary to infection and more likely secondary to previous Lucero catheter. Patient was felt to be stable for discharge with a Lucero catheter x7 days. The patient will follow up with Dr. Kelsey as an outpatient for Lucero catheter removal in approximately seven days. Final urine culture result did reveal yeast, otherwise unremarkable. Again, discussion was initiated with patient as well as patient's mother who was present at bedside. Secondary to her overall chronic deconditioning, I did recommend rehab with transition in the terminal makeup operator care including residential. Once again, she refused and stated that she wished to go home. Unfortunately, and overall, her terminal makeup operator prognosis is poor at best. FINAL DISCHARGE DIAGNOSES 1. Abnormal CT showing questionable left pyelonephritis with final urine culture negative. 2. Toxic metabolic encephalopathy secondary to polypharmacy in the past. 3. Acute on chronic hypoxic respiratory failure, now O2 dependent. 4. Severe morbid obesity. 5. Gastroesophageal reflux disease. 6. Hypertension. 7. Chronic dystonia/muscle dystrophy, followed by Dr. Telles as an outpatient. Fibromyalgia. 8. Chronic back pain. 9. Polypharmacy. 10. Chronic immobility syndrome. DISCHARGE MEDICATIONS 1. Valium 5 mg p.o. q.8 p.r.n. 2. Bumex 2 mg p.o. daily. 3. Aspirin 81 mg p.o. daily. 4. Omeprazole 40 mg p.o. daily. Unit #: [id number] #: [id number] Patient: WHITNEY RONDON 5. Klor-Con 20 mEq p.o. daily. 6. Zoloft 200 mg p.o. daily. DISCHARGE CONDITION Stable. DISCHARGE DISPOSITION Home with [facility] services. terminal makeup operator prognosis of this patient is poor. Chance of readmission significantly high. Dictated by... May Meraz/raymond TD: 01/09/2017 16:16 JOB #: [id number] DISCHARGE SUMMARY Page 1 of 1 X Anurag Bush MD X DISCHARGE SUMMARY
--- NOTE | ~2017-01-05 | CT4 ---
[facility] A Service of [facility] RADIOLOGY TEXT RESULTS PATIENT: WHITNEY RONDON LOCATION: [facility] 239-01 : 52 UNIT #: [id number] AGE: [address]: Anurag Bush MD SEX: F ORDER DR: [id number] [facility] [address] [facility]. [place], [place] [address] [id number] E MR#: [id number] Acc #: [id number] NAME: WHITNEY RONDON : 1950 SEX: F STUDY DATE/TIME: 01/06/2017 5:47 UNIT: OTILIO ROOM: STUDY DESCRIPTION: CT Abd and Pelv Wo Cont Attending Physician: Maria Del Carmen Gutierrez M.D. Ordering Physician: Maria Del Carmen Gutierrez M.D. Primary Care Physician: Eirc Rosado M.D. MEDICAL IMAGING REPORT This report is preliminary unless electronic signature is present EXAM CT abdomen and pelvis INDICATION Generalized abdominal pain. Nausea, vomiting and diarrhea. TECHNIQUE CT of the abdomen and pelvis without contrast. Coronal and sagittal reconstructions were obtained. This CT examination was performed with one or more of the following radiation dose reduction techniques: automatic exposure control, adjustment of mA and/or kV according to patient size, and iterative reconstruction. COMPARISON CT abdomen and pelvis dated 12/04/2016. FINDINGS ABDOMEN: There is some atelectasis in both lung bases. Noncontrast evaluation of the liver, gallbladder, pancreas, spleen, and adrenal glands are within normal limits. There is mild pelvocaliectasis of the left renal collecting system as well as a single focus of gas within the left renal collecting system. This would indicate a ascending urinary tract infection. There is some gas within the urinary bladder. Right kidney and right ureter are normal in appearance. The bowel is not dilated. There is some mild stranding in the anterior abdominal wall presumably from recent hernia repair or midline incision. The bowel is not dilated. The abdominal aorta is normal in caliber. PELVIS: No pelvic mass. The uterus and ovaries are presumed surgically [facility] A Service of [facility] RADIOLOGY TEXT RESULTS PATIENT: WHITNEY RONDON LOCATION: [facility] 239- : 52 UNIT #: [id number] AGE: [address]: Anurag Bush MD SEX: F ORDER DR: absent. No enlarged pelvic or inguinal lymph nodes. IMPRESSION 1. Mild left pelvocaliectasis with gas in the left renal collecting system. This often represents a ascending urinary tract infection unless the patient has had a recent urinary tract procedure. Correlation with urinalysis is recommended to confirm. 2. Gas in the urinary bladder. Again this is often seen with a urinary tract infection, however, correlate for any evidence of a recent procedure. Dictated by... Antonio Gavin M.D. THIS IS AN ELECTRONICALLY VERIFIED REPORT Antonio Gavin M.D. at 01/10/2017 7:03 AM ZIA/berkley TD: 01/06/2017 06:57 JOB #: [id number] MEDICAL IMAGING REPORT Page 1 of 1 COPY
--- NOTE | ~2017-01-05 | HP ---
Unit #: [id number] #: [id number] Patient: WHITNEY RONDON [id number] [address] [place], [place] [address] [id number] I MR#: [id number] NAME: WHITNEY RONDON ROOM: 39481 Age: 66 Sex: F Admission Date: 01/06/2017 : 1950 Attending Physician: Anurag Bush M.D. Primary Care Physician: Eric Rosado M.D. HISTORY AND PHYSICAL REASON FOR ADMISSION Intractable abdominal pain, nausea, vomiting, possible urinary tract infection/pyelonephritis. HISTORY OF PRESENT ILLNESS The patient is a 66-year-old female discharged from our hospital yesterday, 01/05/2017, secondary to acute hypoxic respiratory failure, healthcare acquired pneumonia and dystonia. She apparently was discharged home through that time. She stated that when she went home she began developing intractable abdominal pain, nausea and vomiting episodes, and subsequently presented back to the emergency room for further evaluation. While she was evaluated here in the emergency room her urinalysis was mildly positive, although noted on her previous hospital admission urine cultures times two were negative. She was noted to have intractable nausea and vomiting episodes as well as abdominal pain. She underwent a CT of the abdomen and pelvis which raised the possibility of gas in the left renal collecting system and/or gaseous distension within the bladder. Concern for possible underlying pyelonephritis was made and, thus, the patient was and is being admitted for the same. The patient has already been seen by Dr. Kelsey of urology services. CT of the abdomen and pelvis with renal protocol, IV contrast and delayed cuts has already been ordered and is currently pending. PAST MEDICAL HISTORY 1. Recent hospital admission from 12/31/2016 to 01/05/2017 secondary to mental status changes, likely polypharmacy, acute hypoxic respiratory failure and healthcare acquired pneumonia. 2. Healthcare acquired pneumonia recent admission. 3. Acute kidney injury, recent admission now resolved. 4. Gastroesophageal reflux disease. 5. Hypertension. 6. Dystonia. 7. Fibromyalgia. 8. Chronic back pain. 9. Numerous medication allergies. 10. Polypharmacy. 11. Asthma. 12. Bipolar. 13. Morbid obesity. 14. Chronic immobility syndrome. The patient essentially resides in a wheelchair. PAST SURGICAL HISTORY Unit #: [id number] #: [id number] Patient: WHITNEY RONDON 1. Abdominal laparoscopic cholecystectomy. 2. PCI history. 3. Stent placement. 4. Total abdominal hysterectomy. 5. Bilateral salpingo oophorectomy. 6. Bilateral carpal tunnel release. 7. Appendectomy. 8. Urge incontinence treated with cystoscopy. 9. Botox injections. 10. Tonsillectomy. SOCIAL HISTORY The patient resides at home with her brother. She is essentially wheelchair bound. Apparently she does ambulate sometimes with the use of a walker. She is a lifelong nonsmoker. No alcohol use. FAMILY HISTORY Positive for coronary artery disease, diabetes, hypertension. ALLERGIES Reglan, Cipro, sulfa, methadone, flu vaccine, opioids. HOME MEDICATIONS/RECENT DISCHARGE MEDICATIONS 1. Valium. 2. Zoloft. 3. Omeprazole. 4. Aspirin. 5. Tylenol. 6. Bumex. 7. Potassium chloride. REVIEW OF SYSTEMS Please see history of present illness. Twelve points otherwise negative except for those positives noted in the history of present illness. PHYSICAL EXAMINATION GENERAL: The patient is a 66-year-old morbidly obese female in no acute distress. VITALS: Temperature 98.6, pulse 100, respiratory rate 14, blood pressure 128/79. HEENT: Head exam atraumatic, normocephalic. Ears, tympanic membranes without any erythema or injection. NECK: Supple. LUNGS: Clear. HEART: S1 and S2. Tachycardic without murmur. ABDOMEN: Distension noted. Mild tenderness. EXTREMITIES: Lower extremities, no evidence of any edema. NEUROLOGIC: The patient is alert and oriented times three. Slow affect demonstrated. INITIAL EMERGENCY ROOM COURSE The patient received Zofran, Protonix, Phenergan and Rocephin. DIAGNOSTIC STUDIES IMAGING: LABORATORY: Studies at the time of admission include the aforementioned urinalysis. Unit #: [id number] #: [id number] Patient: WHITNEY RONDON CARDIOVASCULAR: INITIAL ASSESSMENT 1. Intractable nausea and vomiting. 2. Abdominal pain. 3. Possible pyelonephritis/air within the renal collecting system. 4. Mildly positive urinalysis. 5. Recent hospital admission secondary to acute hypoxic respiratory failure. 6. Chronic immobility syndrome. 7. Chronic dystonia. 8. Anxiety. 9. Depression. 10. Gastroesophageal reflux disease. 11. Polypharmacy in the past secondary to chronic narcotics. 12. Chronic back pain issues. 13. Bipolar disorder. PLAN Admission to telemetry floor. Symptom management for nausea and vomiting. Reglan will be initiated. Clear diet will subsequently be started once okayed by the urology services and after CT is done. If the patient is able to tolerate a clear diet well, she will be transitioned and advanced as tolerated. If unable to do so, consultation will be obtained with GI services. It should be noted that the patient recently and prior to hospital admission in our particular institution, did have an admission at [facility] secondary to intractable abdominal pain and did undergo exploratory laparotomy as well as lysis of adhesions at that particular time. It should also be noted that from the patient's hospital admission from 12/31/2016 to 01/05/2017 a strong recommendation was made from physical therapy and occupational therapy for the patient to be placed in rehab and/or consideration for long-term care, to which the patient did deny. She stated that she wanted to go home. I do question certainly in regard to her nausea, vomiting and abdominal pain issues that if she truly has alternative gain and/or poor support while at home. However, at this present time will perform symptom management. I discussed with other family members and further hospital course to follow. I will continue Rocephin 1 gram IV q.24 h. for now. Noted, she does have a penicillin allergy. However, she has tolerated cephalosporins in the past without difficulty. Routine laboratory studies will also be obtained. Overall, the long-term prognosis of this patient at best is guarded. Plans have been reviewed with the patient in detail. Further hospital course to follow. Dictated by Anurag Bush M.D. ISN/gz Unit #: [id number] #: [id number] Patient: WHITNEY RONDON TD: 01/06/2017 11:36 JOB #: [id number] HISTORY AND PHYSICAL Page 1 of 1 X Anurag Bush MD HISTORY AND PHYSICAL
[~2017-01-05 23:48] MED LIST changes: +ACETAMINOPHEN325 MG PO; +ASPIRIN81 MG PO; +BUMEX2 MG PO; +MIRALAX17 GM PO; +OMEPRAZOLE10 M1 PO; +POTASSIUM CHLO20 ME2 PO; +SUMATRIPTAN SUC50 M1 PO
[2017-01-06 01:59] LABS: BASOPHIL# 0.2 X10e3 (0-0.3); BASOPHIL% 1.1 % (0-2.5); EOSINOPHIL# 0.6 X10e3 (0-0.7); EOSINOPHIL% 3.5 % (0.0-7.0); HEMATOCRIT 38.8 % (35.0-45.0); LYMPHOCYTE# 3.2 X10e3 (1.0-3.5); LYMPHOCYTE% 18.1 % (17.0-45.0); MEAN CELL VOLUME 82.3 FL (83-96); MEAN CORPUSCULAR HEMOGLOBIN 26.7 PG (28-34); MEAN CORPUSCULAR HGB CONC 32.5 g/dL (30-36); MEAN PLATELET VOLUME 7.2 FL (6.5-11.5); MONOCYTE# 1.2 X10e3 (0-1.0); MONOCYTE% 6.8 % (3.0-12.0); NEUTROPHIL# 12.4 X10e3 (1.5-7.1); NEUTROPHIL% 70.5 % (40-75); RED BLOOD COUNT 4.71 X10e (3.90-5.30); RED CELL DISTRIBUTION WIDTH 18.5 % (11.0-15.5)
[2017-01-06 02:01] LABS: DIFF IND YES; HEMOGLOBIN 12.6 gm/dL (12.0-16.0); PLATELET COUNT 445 X10e3 (140-420); WHITE BLOOD COUNT 17.6 X10e3 (4.0-10.5)
[2017-01-06 02:21] LABS: ANISOCYTOSIS MOD; PLATELET ESTIMATE NORMAL (NORMAL); SMUDGE CELLS 4 /100
[2017-01-06 02:54] LABS: ALBUMIN SERUM 4.1 g/dL (3.5-5.0); BILIRUBIN, DIRECT 0.1 mg/dL (0.0-0.2); BILIRUBIN,TOTAL 1.1 mg/dL (0.2-2.0); CALCIUM SERUM 9.7 mg/dL (8.4-10.2); GLOM FILT RATE Estimated 59.5 mL/min (>60); POTASSIUM 3.4 mmol/L (3.5-5.1); PROTEIN TOTAL SERUM 8.2 g/dL (6.0-8.3)
[2017-01-06 05:31] LABS: URINE SOURCE CLEAN CATCH
[2017-01-06 05:42] LABS: URINE APPEARANCE CLOUDY; URINE BILIRUBIN NEG (NEG); URINE BLOOD NEG (NEG); URINE COLOR YELLOW; URINE GLUCOSE NEG (NEG); URINE KETONE 1+ (NEG); URINE LEUKOCYTE ESTERASE 1+ (NEG); URINE NITRATE NEG (NEG); URINE PROTEIN 1+ (NEG); URINE SPECIFIC GRAVITY 1.015 (1.003-1.035); URINE UROBILINOGEN 0.2 MG/DL (NEG)
[2017-01-06 05:52] LABS: CULTURE INDICATED? YES; URINE BACTERIA AUWI NEG (NEGATIVE); URINE SQUAMOUS EPITHELIAL CELL FEW /[HPF]; UWBCS1 AUWI 25-50 (0-5)
[2017-01-06 06:10] LABS: AMPHETAMINE NEG (NEG); BARBITURATES NEG (NEG); BENZODIAZEPINES POS (NEG); COCAINE NEG (NEG); MARIJUANA NEG (NEG); OPIATES POS (NEG); TRICYCLIC ANTIDEPRESSANTS POS (NEG); U METHADONE NEG (NEG)
[2017-01-07 05:22] LABS: HEMATOCRIT 37.9 % (35.0-45.0); HEMOGLOBIN 12.2 gm/dL (12.0-16.0); MEAN CELL VOLUME 83.4 FL (83-96); MEAN CORPUSCULAR HEMOGLOBIN 26.7 PG (28-34); MEAN PLATELET VOLUME 7.7 FL (6.5-11.5); RED BLOOD COUNT 4.55 X10e (3.90-5.30); RED CELL DISTRIBUTION WIDTH 18.9 % (11.0-15.5); WHITE BLOOD COUNT 13.8 X10e3 (4.0-10.5)
[2017-01-07 06:00] LABS: GLOM FILT RATE Estimated 59.5 mL/min (>60); POTASSIUM 3.3 mmol/L (3.5-5.1)
[2017-01-09 07:03] LABS: HEMATOCRIT 38.1 % (35.0-45.0); HEMOGLOBIN 12.2 gm/dL (12.0-16.0); MEAN CELL VOLUME 83.4 FL (83-96); MEAN CORPUSCULAR HEMOGLOBIN 26.6 PG (28-34); RED BLOOD COUNT 4.57 X10e (3.90-5.30); RED CELL DISTRIBUTION WIDTH 18.4 % (11.0-15.5); WHITE BLOOD COUNT 10.4 X10e3 (4.0-10.5)
[2017-01-09 08:00] LABS: BUN/CREATININE RATIO 26.25; CREATININE SERUM 0.8 mg/dL (0.6-1.4); MAGNESIUM 1.8 mg/dL (1.6-3.0); POTASSIUM 3.6 mmol/L (3.5-5.1)
== END 2017-01-09 14:28 | disposition home health service (06) | DRG 698 ==
LOC: CED 23:48 → CEDOF 01-06 06:55 → C2A 01-06 06:55 → CEDOF 01-06 07:02 → CED 01-06 07:02 → C2A 01-06 13:32 → CEDOF 01-06 13:32 → C2A 01-09 14:28
PROVIDERS: Family Medicine; Student in an Organized Health Care Education/Training Program
DX: T83.518A Infection and inflammatory reaction due to other urinary catheter, initial encounter (principal); G92 Toxic encephalopathy; J96.21 Acute and chronic respiratory failure with hypoxia; N10 Acute pyelonephritis; E66.01 Morbid (severe) obesity due to excess calories; Y73.1 Therapeutic (nonsurgical) and rehabilitative gastroenterology and urology devices associated with adverse incidents; Z68.28 Body mass index [BMI] 28.0-28.9, adult; K21.9 Gastro-esophageal reflux disease without esophagitis; I10 Essential (primary) hypertension; G24.9 Dystonia, unspecified; M79.7 Fibromyalgia; G89.29 Other chronic pain; M54.9 Dorsalgia, unspecified; M62.3 Immobility syndrome (paraplegic); F32.9 Major depressive disorder, single episode, unspecified; F41.9 Anxiety disorder, unspecified; E87.6 Hypokalemia; Z83.3 Family history of diabetes mellitus; Z82.49 Family history of ischemic heart disease and other diseases of the circulatory system; Z88.1 Allergy status to other antibiotic agents; Z88.5 Allergy status to narcotic agent; Z88.2 Allergy status to sulfonamides; Z88.7 Allergy status to serum and vaccine; Z88.8 Allergy status to other drugs, medicaments and biological substances
CPT/HCPCS: 36415; 74176; 74177; 80048; 80076; 80307; 81003; 82607; 83690; 83735; 84132; 84443; 85025; 85027; 87086; 99285; C9113; J0696; J2405; J2550; J2765; J3475; Q9967

== ENCOUNTER 2017-01-12 14:18 | Inpatient (IN) | payer MEDICARE, BC ==
--- NOTE | ~2017-01-12 | EKG ---
PATIENT: WHITNEY RONDON UNIT #: [id number] Ventricular Rate: 84 BPM Atrial Rate: 84 BPM P-R Interval: 154 ms QRS Duration: 68 ms Q-T Interval: 390 ms QTC Calculation(Bezet): 460 ms P [place]: 21 degrees Calculated R [place]: 18 degrees Calculated T [place]: 168 degrees Diagnosis Line: Normal sinus rhythm Diagnosis Line: Left ventricular hypertrophy Diagnosis Line: Abnormal ECG Diagnosis Line: When compared with ECG of 31-DEC-2016 12:56, Diagnosis Line: QT has lengthened Diagnosis Line: Confirmed by ESTRELLA AGUIAR MD ([id number]) on Diagnosis Line: 01/14/2017 1:09:40 PM INTERPRETING MD: FOUZIA
--- NOTE | ~2017-01-12 | CT71 ---
[facility] A Service of [facility] RADIOLOGY TEXT RESULTS PATIENT: WHITNEY RONDON LOCATION: [facility] 329-01 : 52 UNIT #: [id number] AGE: [address]: KARLEE ACEVEDO MD SEX: F ORDER DR: [id number] [id number] [place], [place] [address] [id number] I MR#: [id number] #: [id number] NAME: WHITNEY RONDON : 1950 SEX: F STUDY DATE/TIME: 01/12/2017 16:11 UNIT: CEDOF ROOM: 69194 STUDY DESCRIPTION: CT Head Wo Contrast Attending Physician: Karlee Acevedo M.D. Ordering Physician: Shahid Boone M.D. Primary Care Physician: Eric Rosado M.D. MEDICAL IMAGING REPORT This report is preliminary unless electronic signature is present EXAM CT scan of the head without contrast INDICATIONS Weakness and dizziness for 2 days. COMPARISON 01/05/2015 TECHNIQUE Axial noncontrast images were obtained from the skull base to the vertex. This CT exam was performed with one or more of the following radiation dose reduction techniques: Automatic exposure control, adjustment of mA and/or kV according to patient size, and iterative reconstruction. FINDINGS Ventricular size and configuration are normal. There is no evidence of acute infarct or hemorrhage. There are no extraaxial fluid collections. No mass lesion or mass effect is seen. There are no skull fractures. IMPRESSION Normal noncontrast head CT. Dictated by... Aquilino Krishnamurthy M.D. THIS IS AN ELECTRONICALLY VERIFIED REPORT Aquilino Krishnamurthy M.D. at 01/13/2017 7:10 AM NANDA/tracee [facility] A Service [facility] RADIOLOGY TEXT RESULTS PATIENT: WHITNEY RONDON LOCATION: [facility] 329-01 : 52 UNIT #: [id number] AGE: [address]: KARLEE ACEVEDO MD SEX: F ORDER DR: TD: 01/12/2017 21:21 JOB #: [id number] MEDICAL IMAGING REPORT Page 1 of 1 COPY
--- NOTE | ~2017-01-12 | DS ---
Unit #: [id number] #: [id number] Patient: WHITNEY RONDON [id number] [address] [address] [id number] I MR#: [id number] NAME: WHITNEY RONDON ROOM: 217 Age: 66 Sex: F Admission Date: 01/12/2017 : 1950 Discharge Date: Attending Physician: Anurag Bush M.D. Primary Care Physician: Eric Rosado M.D. DISCHARGE SUMMARY Discharge is pending placement. HISTORY OF PRESENT ILLNESS/HOSPITAL COURSE The patient is a 66-year-old female who has been hospitalized two to three times over the past six to seven weeks for similar circumstance. Once again, was admitted secondary to chronic immobility syndrome and unable to feed and/or care for herself. Was initially diagnosed with a urinary tract infection. She was placed on Med/Surg floor. Routine medications were continued. Ultimately, her urine culture did not yield any acute bacterial growth. Her antibiotics were de-escalated. PT and OT services as they have recommended in the past on her previous two admissions. Once again, recommended rehab with transition into extermination inspector care. Previously, patient had been adamantly refusing. This time, however, she agreed. The range of her medical condition remains stable. She was maintained on her routine medications. It should be noted that in the past, secondary to polypharmacy, narcotics as well as benzodiazepines, the patient has had toxic metabolic encephalopathy and these should be used with caution moving forward. Currently, she is medically stable for transition to fpc and/or rehab at any point in time once placement is achieved. A separate addendum will be dictated in regards to patient's discharge medications but, currently, her clinical diagnosis is as follows: 1. Chronic immobility syndrome secondary to chronic dystonia. 2. Chronic muscle dystrophy. 3. Fibromyalgia. 4. Hypertension. 5. Gastroesophageal reflux disease. 6. Severe morbid obesity. 7. Chronic respiratory failure, O2 dependent. 8. Toxic metabolic encephalopathy secondary to polypharmacy in the past. 9. Recurrent urinary tract infections with current culture negative. 10. Chronic back pain. 11. Noncompliance with regimen in past. Dictated by... Unit #: [id number] #: [id number] Patient: ALCONWHITNEY M.D. ISN/raymond TD: 01/19/2017 08:19 JOB #: [id number] DISCHARGE SUMMARY Page 1 of 1 X Anurag Bush MD X DISCHARGE SUMMARY
--- NOTE | ~2017-01-12 | CR72 ---
[facility] A Service of [facility] RADIOLOGY TEXT RESULTS PATIENT: WHITNEY RONDON LOCATION: [facility] 329-01 : 52 UNIT #: [id number] AGE: [address]: Anurag Bush MD SEX: F ORDER DR: [id number] [facility] [address]. [place], [place] [address] [id number] E MR#: [id number] Acc #: [id number] NAME: WHITNEY RONDON : 1950 SEX: F STUDY DATE/TIME: 01/12/2017 14:53 UNIT: [facility] ROOM: STUDY DESCRIPTION: CR Chest Single View Portable Attending Physician: Shahid Boone M.D. Ordering Physician: Shahid Boone M.D. Primary Care Physician: Eric Rosado M.D. MEDICAL IMAGING REPORT This report is preliminary unless electronic signature is present EXAM Chest x-ray 01/12/2017 HISTORY 66-year-old female in the ED complaining of new onset shortness of air and weakness today. TECHNIQUE AP portable upright chest x-ray. FINDINGS Right upper lobe pulmonary infiltrate present on the recent study of 01/04/2017 has cleared. The lungs are clear today, there is no visible pleural effusion. Heart size and pulmonary vascularity are normal. IMPRESSION No active disease. Dictated by... Jose D Sosa M.D. THIS IS AN ELECTRONICALLY VERIFIED REPORT Jose D Sosa M.D. at 01/13/2017 4:35 PM RGW/elgin TD: 01/12/2017 18:05 JOB #: [id number] MEDICAL IMAGING REPORT Page 1 of 1 COPY
--- NOTE | ~2017-01-12 | DS ---
Unit #: [id number] #: [id number] Patient: WHITNEY RONDON [id number] [address] [place], [place] [address] [id number] I MR#: [id number] NAME: WHITNEY RONDON ROOM: 217 Age: 66 Sex: F Admission Date: 01/12/2017 : 1950 Discharge Date: Attending Physician: Anurag Bush M.D. Primary Care Physician: Eric Rosado M.D. DISCHARGE SUMMARY ADDENDUM HISTORY OF PRESENT ILLNESS/HOSPITAL COURSE The patient is a 66-year-old female who has been hospitalized two to three times over the past six to seven weeks for similar circumstance. Once again, was admitted secondary to chronic immobility syndrome and unable to feed and/or care for herself. Was initially diagnosed with a urinary tract infection. She was placed on Med/Surg floor. Routine medications were continued. Ultimately, her urine culture did not yield any acute bacterial growth. Her antibiotics were de-escalated. PT and OT services as they have recommended in the past on her previous two admissions. Once again, recommended rehab with transition into business services tech care. Previously, patient had been adamantly refusing. This time, however, she agreed. The range of her medical condition remains stable. She was maintained on her routine medications. It should be noted that in the past, secondary to polypharmacy, narcotics as well as benzodiazepines, the patient has had toxic metabolic encephalopathy and these should be used with caution moving forward. Currently, she is medically stable for transition to business services tech and/or rehab at any point in time once placement is achieved. A separate addendum will be dictated in regards to patient's discharge medications but, currently, her clinical diagnosis is as follows: 1. Chronic immobility syndrome secondary to chronic dystonia. 2. Chronic muscle dystrophy. 3. Fibromyalgia. 4. Hypertension. 5. Gastroesophageal reflux disease. 6. Severe morbid obesity. 7. Chronic respiratory failure, O2 dependent. 8. Toxic metabolic encephalopathy secondary to polypharmacy in the past. 9. Recurrent urinary tract infections with current culture negative. 10. Chronic back pain. 11. Noncompliance with regimen in past. Dictated by... Anurag Bush M.D. ISN/df Unit #: [id number] #: [id number] Patient: WHITNEY RONDON TD: 01/19/2017 08:19 JOB #: [id number] ADDENDUM DISCHARGE MEDICATIONS Please note the following discharge medications. 1. Tylenol 650 mg p.o. q.6 h. p.r.n. 2. Zoloft 200 mg p.o. daily. 3. Valium 5 mg p.o. q.8 h. p.r.n. 4. Bumex 2 mg p.o. daily. 5. Aspirin 81 mg daily. 6. [place] 10/325 mg 1 tablet p.o. q.4 h. p.r.n. 7. Omeprazole 40 mg p.o. daily. 8. Potassium chloride 20 mEq p.o. daily. DISPOSITION The patient will be transferred to rehab facility with consideration of long-term care. DISCHARGE CONDITION Stable. Dictated by... May Meraz/salima TD: 01/19/2017 10:54 JOB #: [id number] DISCHARGE SUMMARY Page 1 of 1 X Anurag Bush MD X DISCHARGE SUMMARY
--- NOTE | ~2017-01-12 | HP ---
Unit #: [id number] #: [id number] Patient: WHITNEY RONDON [id number] [address] [place], [place] [address] [id number] MR#: [id number] NAME: WHITNEY RONDON ROOM: Age: 66 Sex: F Admission Date: 01/12/2017 : 1950 Attending Physician: Shahid Boone M.D. Primary Care Physician: Eric Rosado M.D. HISTORY AND PHYSICAL CHIEF COMPLAINT Weakness. HISTORY OF PRESENT ILLNESS The patient is a 66-year-old female with history of acute hypoxic respiratory failure, healthcare-associated pneumonia, dystonia, was recently discharged from the hospital on 01/09 with a toxic metabolic encephalopathy and vqzem-ij-crempub hypoxic respiratory failure and chronic immobility syndrome. She was brought to the emergency room complaining of feeling weakness. The patient was found to have a UTI with 3+ leukocyte esterase and innumerable urine wbc's, 25-50 urine rbc's. Also with concern for further worsening dystonia. She is being admitted. The patient is a poor historian and the history is obtained by the ER physician at the baseline. The patient was recommended for rehab last time, however, the family refused. The patient stated the patient has been having dehydration. Has not been eating and drinking well. PAST MEDICAL HISTORY 1. History of healthcare-associated pneumonia. 2. Acute kidney injury. 3. Gastroesophageal reflux disease. 4. Hypertension. 5. Dystonia. 6. Xvaia-ni-cubdnjz respiratory failure. 7. Chronic back pain. 8. Asthma. 9. Bipolar. 10. Morbid obesity. 11. Chronic immobility syndrome. PAST SURGICAL HISTORY 1. Abdominal laparoscopic cholecystectomy. 2. PCI with stent placement. 3. Total abdominal hysterectomy, bilateral salpingo-oophorectomy. 4. Bilateral carpal tunnel release. 5. Appendectomy. 6. Tonsillectomy. HOME MEDICATIONS From the records, she is on: 1. Valium. 2. Zoloft. 3. Omeprazole. 4. Aspirin. Unit #: [id number] #: [id number] Patient: WHITNEY RONDON 5. Tylenol. 6. Bumex. 7. Potassium chloride. ALLERGIES 1. Reglan. 2. Cipro. 3. Sulfa. 4. Methadone. 5. Fluoxetine. 6. Opioids. SOCIAL HISTORY The patient resides at home with her brother. She is essentially wheelchair-bound. Apparently, she does ambulate sometime with the use of a walker. She is a lifelong nonsmoker, no alcohol use. FAMILY HISTORY Positive for coronary artery disease, diabetes, hypertension. REVIEW OF SYSTEMS A 14-point review of systems performed and only pertinent positive findings are as described above, remaining are negative. PHYSICAL EXAMINATION VITAL SIGNS: Temperature 97.5, pulse 88, respiratory rate 16, blood pressure 130/56, saturating 99% on 2 liters. GENERAL: Patient is lying on the bed not in acute distress. HEENT: Atraumatic, normocephalic. Pupils equal, round, and reactive to light and accommodation. Dry mucous membrane. NECK: Supple. LUNGS: Decreased air entry at the bases. HEART: Regular rate and rhythm. ABDOMEN: Soft, positive bowel sounds. EXTREMITIES: No evidence of edema. NEUROLOGIC: Alert, awake, oriented. Slow affect demonstrated. DIAGNOSTIC STUDIES LABORATORY: Glucose 82, BUN 21, creatinine 0.5, sodium 133, potassium 3.8, chloride 93, bicarb 29, calcium 9.7, total protein 8.2, albumin 4.2, AST 38, ALT 27, alkaline phosphatase 92. INR 1.7. WBC 7, hemoglobin 12.7, hematocrit 39.1, platelets 384. UA shows 3+ leukocyte esterase, 1+ protein, 25-50 urine rbc's, urine wbc's are innumerable. Urine bacteruria negative. CARDIOVASCULAR: EKG shows normal sinus rhythm at a rate of 84 beats per minute and T-wave inversions in the inferior leads and the QTC of 460 msec. ASSESSMENT AND PLAN 1. Urinary tract infection with history of Lucero catheter present at the time of admission. 2. Weakness. 3. Dystonia. PLAN 1. Admit patient as observation with telemetry. 2. Start Rocephin 1 gram daily. 3. Change the Lucero catheter and put the straight cath UA to document Unit #: [id number] #: [id number] Patient: WHITNEY RONDON the true presence of infection. 4. Case management for rehab as patient has recurrent admission with refusal of rehab placement in the past. 5. Further recommendations will follow. Dictated by May Valadez/chencho TD: 01/12/2017 17:46 JOB #: [id number] HISTORY AND PHYSICAL Page 1 of 1 X KARLEE SALMON MD HISTORY AND PHYSICAL
[2017-01-12 15:03] LABS: URINE SOURCE CLEAN CATCH
[2017-01-12 15:14] LABS: URINE APPEARANCE TURBID; URINE BILIRUBIN NEG (NEG); URINE BLOOD TRACE (NEG); URINE COLOR YELLOW; URINE GLUCOSE NEG (NEG); URINE KETONE 1+ (NEG); URINE LEUKOCYTE ESTERASE 3+ (NEG); URINE NITRATE NEG (NEG); URINE PROTEIN 1+ (NEG); URINE SPECIFIC GRAVITY 1.022 (1.003-1.035)
[2017-01-12 15:25] LABS: CULTURE INDICATED? YES; URBCS1 AUWI 25-50 /[HPF] (0-2); URINE BACTERIA AUWI NEG (NEGATIVE); URINE SQUAMOUS EPITHELIAL CELL OCC /[HPF]; UWBCS1 AUWI INNUM (0-5)
[2017-01-12 15:28] LABS: BASOPHIL% 0.3 % (0-2.5); EOSINOPHIL# 0.5 X10e3 (0-0.7); HEMATOCRIT 39.1 % (35.0-45.0); HEMOGLOBIN 12.7 gm/dL (12.0-16.0); LYMPHOCYTE# 1.5 X10e3 (1.0-3.5); LYMPHOCYTE% 20.7 % (17.0-45.0); MEAN CELL VOLUME 83.9 FL (83-96); MEAN CORPUSCULAR HEMOGLOBIN 27.3 PG (28-34); MEAN CORPUSCULAR HGB CONC 32.6 g/dL (30-36); MEAN PLATELET VOLUME 8.7 FL (6.5-11.5); MONOCYTE# 0.4 X10e3 (0-1.0); NEUTROPHIL# 4.6 X10e3 (1.5-7.1); PLATELET COUNT 384 X10e3 (140-420); RED BLOOD COUNT 4.66 X10e (3.90-5.30); RED CELL DISTRIBUTION WIDTH 18.3 % (11.0-15.5)
[2017-01-12 15:32] LABS: DIFF IND NO
[2017-01-12 15:36] LABS: U HYALINE CASTS AUWI 0-2 /[LPF]; URINE YEAST PRESENT
[2017-01-12 15:36] LABS: POC - CKMB 1.8 ng/mL (0.0-7.9); POC - TROPONIN <0.05 ng/mL (<=0.05)
[2017-01-12 16:02] LABS: INR 1.7; PARTIAL THROMBOPLASTIN TIME 31.6 SECONDS (23.5-31.3)
[2017-01-12 16:05] LABS: ALBUMIN SERUM 4.2 g/dL (3.5-5.0); BILIRUBIN, DIRECT 0.2 mg/dL (0.0-0.2); BILIRUBIN,INDIRECT 0.5 mg/dL (0.0-0.9); BILIRUBIN,TOTAL 0.7 mg/dL (0.2-2.0); CALCIUM SERUM 9.7 mg/dL (8.4-10.2); CREATININE SERUM 0.5 mg/dL (0.6-1.4); GLOM FILT RATE Estimated 102.3 mL/min (>60); POTASSIUM 3.8 mmol/L (3.5-5.1); PROTEIN TOTAL SERUM 8.2 g/dL (6.0-8.3)
[2017-01-12 16:06] LABS: PROTHROMBIN TIME (PATIENT) 18.1 SECONDS (9.6-11.5)
[2017-01-12 18:00] LABS: POC - CKMB 1.3 ng/mL (0.0-7.9); POC - TROPONIN <0.05 ng/mL (<=0.05)
[2017-01-13 08:52] LABS: HEMATOCRIT 35.1 % (35.0-45.0); HEMOGLOBIN 11.4 gm/dL (12.0-16.0); MEAN CELL VOLUME 84.1 FL (83-96); MEAN CORPUSCULAR HEMOGLOBIN 27.4 PG (28-34); MEAN CORPUSCULAR HGB CONC 32.6 g/dL (30-36); MEAN PLATELET VOLUME 8.7 FL (6.5-11.5); RED BLOOD COUNT 4.17 X10e (3.90-5.30); RED CELL DISTRIBUTION WIDTH 18.1 % (11.0-15.5)
[2017-01-13 09:27] LABS: BUN/CREATININE RATIO 37.5; CALCIUM SERUM 9.1 mg/dL (8.4-10.2); CREATININE SERUM 0.4 mg/dL (0.6-1.4); GLOM FILT RATE Estimated 110.1 mL/min (>60); POTASSIUM 3.7 mmol/L (3.5-5.1)
[2017-01-14 06:36] LABS: HEMATOCRIT 35.1 % (35.0-45.0); HEMOGLOBIN 11.4 gm/dL (12.0-16.0); MEAN CELL VOLUME 83.6 FL (83-96); MEAN CORPUSCULAR HEMOGLOBIN 27.2 PG (28-34); MEAN CORPUSCULAR HGB CONC 32.5 g/dL (30-36); MEAN PLATELET VOLUME 8.3 FL (6.5-11.5); RED BLOOD COUNT 4.19 X10e (3.90-5.30); RED CELL DISTRIBUTION WIDTH 18.8 % (11.0-15.5); WHITE BLOOD COUNT 5.5 X10e3 (4.0-10.5)
[2017-01-14 06:53] LABS: CALCIUM SERUM 9.2 mg/dL (8.4-10.2); CREATININE SERUM 0.5 mg/dL (0.6-1.4); GLOM FILT RATE Estimated 102.3 mL/min (>60); POTASSIUM 3.4 mmol/L (3.5-5.1)
[2017-01-15] MEDS ORDERED: MORPHINE SULFAT15 MG PO (12:07)
== END 2017-01-19 12:55 | DRG 698 ==
LOC: CED 14:18 → CEDOF 17:30 → CED 17:30 → C2A 17:30 → C3A PCU 21:57 → CEDOF 21:57 → C3A PCU 01-13 07:16 → CEDOF 01-13 09:40 → C3A PCU 01-13 09:40 → C2A 01-14 17:16 → C3A PCU 01-14 17:16 → C2A 01-19 12:55
PROVIDERS: Emergency Medicine; Family Medicine; Internal Medicine
DX: T83.511A Infection and inflammatory reaction due to indwelling urethral catheter, initial encounter (principal); G92 Toxic encephalopathy; G71.0 Muscular dystrophy; J96.10 Chronic respiratory failure, unspecified whether with hypoxia or hypercapnia; N39.0 Urinary tract infection, site not specified; B95.2 Enterococcus as the cause of diseases classified elsewhere; Y73.1 Therapeutic (nonsurgical) and rehabilitative gastroenterology and urology devices associated with adverse incidents; G89.29 Other chronic pain; M54.9 Dorsalgia, unspecified; E86.0 Dehydration; K21.9 Gastro-esophageal reflux disease without esophagitis; I10 Essential (primary) hypertension; G24.9 Dystonia, unspecified; M79.7 Fibromyalgia; E66.01 Morbid (severe) obesity due to excess calories; Z68.28 Body mass index [BMI] 28.0-28.9, adult; Z99.81 Dependence on supplemental oxygen; Z95.5 Presence of coronary angioplasty implant and graft; Z90.710 Acquired absence of both cervix and uterus; Z79.82 Long term (current) use of aspirin; Z99.3 Dependence on wheelchair; Z88.1 Allergy status to other antibiotic agents; Z88.2 Allergy status to sulfonamides; Z88.5 Allergy status to narcotic agent; Z88.8 Allergy status to other drugs, medicaments and biological substances; Z83.3 Family history of diabetes mellitus; Z82.49 Family history of ischemic heart disease and other diseases of the circulatory system
CPT/HCPCS: 36415; 70450; 71010; 80048; 80076; 81003; 82553; 82947; 84484; 85025; 85027; 85610; 85730; 87086; 87088; 93005; 94760; 96360; 97161; 97165; 99285; G8978-GP; G8979-GP; G8980-GP; G8987-GO; G8988-GO; G8989-GO; J0696; J1650; J1885; J2405

== ENCOUNTER 2017-01-23 18:13 | Inpatient (IN) | payer MEDICARE, BC ==
--- NOTE | ~2017-01-23 | OR ---
Unit #: [id number] #: [id number] Patient: WHITNEY RONDON [id number] [address] [place], [place] [address] [id number] I MR#: [id number] NAME: WHITNEY RONDON ROOM: [facility] Date of Procedure: 01/24/2017 Admission Date: 01/24/2017 Surgeon: Elizabeth Acevedo M.D. : 1950 Attending Physician: Anurag Bush M.D. Primary Care Physician: Eric Rosado M.D. PROCEDURE OPERATIVE NOTE PROCEDURE PERFORMED Left internal jugular central venous catheter placement with ultrasound guidance. INDICATION FOR PROCEDURE Septic shock. PREOPERATIVE MEDICATION Lidocaine topical. COMPLICATIONS None. DESCRIPTION OF PROCEDURE An informed consent was obtained from the patient after explaining the benefit and risk of this procedure. Patient was prepped and positioned in a proper way, then her left neck was cleaned with chlorhexidine, then a body drape was applied. With the ultrasound guidance, a needle was inserted in the left IJ until blood flow was obtained. Then a guidewire was inserted and the needle was removed. Then a scalpel was used to create dontrell in that side. After that, a dilator was inserted over the guidewire and eventually the central line catheter was inserted over the guidewire. The guidewire was removed. The central line was sutured in place and flushed appropriately. Patient tolerated her procedure well with no immediate complications. Dictated by... Elizabeth Acevedo M.D. EA/eliza TD: 01/24/2017 09:35 JOB #: [id number] Unit #: [id number] #: [id number] Patient: WHITNEY RONDON PROCEDURE OPERATIVE NOTE Page 1 of 1 X ELIZABETH ORANTES MD X PROCEDURE OPERATIVE NOTE
--- NOTE | ~2017-01-23 | CR72 ---
[facility] A Service of [facility] RADIOLOGY TEXT RESULTS PATIENT: WHITNEY RONDON LOCATION: [facility]3-14 : [birth year] UNIT #: [id number] AGE: [address]: Anurag Bush MD SEX: F ORDER DR: [id number] [facility] [address] [facility]. [place], [place] [address] [id number] I MR#: [id number] Acc #: [id number] NAME: WHITNEY RONDON : 1950 SEX: F STUDY DATE/TIME: 01/23/2017 19:16 UNIT: CEDOF ROOM: [id number] STUDY DESCRIPTION: CR Chest Single View Portable Attending Physician: Anurag Bush M.D. Ordering Physician: Mary Grace Valenzuela M.D. Primary Care Physician: Eric Rosado M.D. MEDICAL IMAGING REPORT This report is preliminary unless electronic signature is present EXAM Portable chest, 01/23. INDICATIONS Weakness, shortness of air for 2 days. History of hypertension. FINDINGS AP portable chest compared with 01/12/17. There is mild cardiomegaly. Lungs are clear. No pneumothorax. Vascularity normal. IMPRESSION Mild cardiomegaly. No active disease. Dictated by... Lucio Machado Jr., M.D. THIS IS AN ELECTRONICALLY VERIFIED REPORT Lucio Machado Jr., M.D. at 01/24/2017 10:04 AM FATOUMATA/stephen TD: 01/24/2017 08:09 JOB #: [id number] MEDICAL IMAGING REPORT Page 1 of 1 COPY
--- NOTE | ~2017-01-23 | CR72 ---
[facility] A Service of [facility] RADIOLOGY TEXT RESULTS PATIENT: WHITNEY RONDON LOCATION: [facility]-14 : 54 UNIT #: [id number] AGE: [address]: Anurag Bush MD SEX: F ORDER DR: [id number] [facility] [address] [facility]. [place], [place] [address] [id number] I MR#: [id number] Acc #: [id number] NAME: WHITNEY RONDON : 1950 SEX: F STUDY DATE/TIME: UNIT: [facility] ROOM: [facility] STUDY DESCRIPTION: CR Chest Single View Portable Attending Physician: Anurag Bush M.D. Ordering Physician: Mary Grace Valenzuela M.D. Primary Care Physician: Eric Rosado M.D. MEDICAL IMAGING REPORT This report is preliminary unless electronic signature is present EXAM Chest portable 01/24/2017 0822 hours HISTORY 67-year-old with 2-day history of abdominal pain and no bowel movement. History of small bowel obstruction. Central line placement today. COMPARISON 01/23/2017 FINDINGS Portable upright chest demonstrates low lung volumes with normal heart size, mildly tortuous aorta unchanged. There is perihilar vascular crowding and increase in perihilar density felt likely atelectatic given the low lung volumes. There is a new left central venous catheter with tip at the junction of SVC and right atrium. No pneumothorax. IMPRESSION 1. New left IJ catheter tip terminates at the junction of SVC and right atrium. There is no pneumothorax. 2. Very low lung volumes with perihilar vascular crowding and increase in perihilar densities felt likely atelectatic. There is no definite effusion. No free air seen in the abdomen. Dictated by... Shannon Zarate M.D. THIS IS AN ELECTRONICALLY VERIFIED REPORT Shannon Zarate M.D. at 01/24/2017 2:33 PM SMM/elgin TD: 01/24/2017 12:58 JOB #: [id number] [facility] A Service of [facility] RADIOLOGY TEXT RESULTS PATIENT: WHITNEY RONDON LOCATION: [address] : [birth year] UNIT #: [id number] AGE: [address]: Anurag Bush MD SEX: F ORDER DR: MEDICAL IMAGING REPORT Page 1 of 1 COPY
--- NOTE | ~2017-01-23 | HP ---
Unit #: [id number] #: [id number] Patient: WHITNEY RONDON [id number] [address] [place], [place] [address] [id number] I MR#: [id number] NAME: WHITNEY RONDON ROOM: 90367 Age: 67 Sex: F Admission Date: 01/24/2017 : 1950 Attending Physician: Harriet Naik M.D. Primary Care Physician: Eric Rosado M.D. HISTORY AND PHYSICAL CHIEF COMPLAINT UTI, hypotension. HISTORY This 67-year-old female with dystonia, chronic pain, asthma, bipolar disorder, is admitted for UTI and hypotension. The patient was last admitted to this facility 01/12/2017 through 01/19/2017 for urinary tract infection and weakness. Apparently cultures have grew out enterococcus, was reported afterwards. Sensitivities are still not back. After discharge home, patient noted increasing weakness, urinary frequency, suprapubic pain with bladder spasms and chills. She presented back to this emergency department last evening, afebrile but with significant pyuria. While in the emergency department she has become hypotensive and currently is receiving a liter of saline. Has been treated for multiple UTIs in the past including E. coli, Proteus, and most recently enterococcus. PAST MEDICAL HISTORY 1. GERD. 2. Dystonia affecting mainly the right arm and right leg requiring Botox by Dr. Aniceto Telles. 3. Fibromyalgia. 4. Chronic low back pain following compression fractures from trauma many years ago. 5. Asthma with chronic respiratory failure on oxygen. 6. Bipolar disorder. 7. Negative cardiac catheterization in 2005. 8. Previous admissions in the past for urinary tract infection and pyelonephritis, along with sepsis. 9. Healthcare associated pneumonia, dystonia, respiratory failure in December requiring intubation. 10. Abdominal surgery with lysis of adhesions recently. 11. ALTON and BSO. 12. Bilateral carpal tunnel release. 13. Appendectomy. 14. Neuroma removed from the feet bilaterally. 15. Urge incontinence treated with cystoscopy and Botox. 16. Lymph node excised. 17. Tonsillectomy. ALLERGIES Reglan, Cipro, sulfa, methadone, influenza vaccine, possibly penicillin. Unit #: [id number] #: [id number] Patient: WHITNEY RONDON HOME MEDICATIONS Per patient includes p.r.n. Tylenol, Zoloft 200 mg daily; Valium 5 mg t.i.d. p.r.n.; aspirin 81 mg daily; [place] 10/325 q.4 hours as needed; omeprazole 40 mg daily. FAMILY HISTORY CAD, diabetes mellitus, hypertension. SOCIAL HISTORY Patient lives with her brother. It is recommended that patient received rehab at a shelter but she has refused. She is interested in hospice. She currently is embolized. Lifelong nonsmoker and does not drink alcohol. REVIEW OF SYSTEMS Notable for urinary frequency, bladder spasm, suprapubic pain, chills, asthma, dystonia, GERD, Fibromyalgia, chronic low back pain, bipolar disorder, above mentioned surgeries. All other systems are reviewed and are otherwise negative. PHYSICAL EXAMINATION GENERAL: 67-year-old fatigue appearing female currently in no acute distress. VITAL SIGNS: Temperature 98.5, pulse 82, respirations 16, blood pressure 100/84, O2 saturation 100% on 2 L of oxygen. HEENT: Eyes - PERRLA, extraocular muscles are intact. Pharynx is benign. NECK: Somewhat rotated to the right. No adenopathy or thyromegaly. CHEST: Clear on patient supine exam. CARDIAC: Normal S1 and S2 without murmur. ABDOMEN: Bowel sounds are present. Mild suprapubic tenderness without rebound or guarding. Well healed scars. No hepatosplenomegaly or masses. EXTREMITIES: With mild edema. NEUROLOGIC: Patient is awake and alert. She is oriented. Her cranial nerves are intact, although her neck is rotated to the right. She has flexion contraction of the right hand and is generally weak throughout, particularly of the right arm. Needs help just to turn over. DIAGNOSTIC STUDIES ADMISSION LABS: Hematocrit 38, normal white count and platelet count. SMA 12 - sodium 130, potassium 3.9, chloride 90, alk phos is 97. Normal BNP, ammonia level. Negative cardiac markers. Urine tox screen positive for benzos and opiates, which are prescribed. Urinalysis 3+ leukocyte esterase with 200 to 300 white cells, no bacteria. Acute abdominal series unremarkable. IMAGING STUDIES: Chest x-ray - mild cardiomegaly. CARDIOLOGY STUDIES: EKG - sinus rhythm, rate 79 with T wave inversions noted inferiorly and laterally, which were previously noted as well. ASSESSMENT 1. UTI with last cultures positive for enterococcus, which grew out later. Sensitivities are still pending. 2. Hypotension, rule out sepsis. 3. Dystonia right side. 4. Fibromyalgia and chronic pain. 5. Asthma with chronic respiratory failure on home O2. 6. Bipolar disorder. Unit #: [id number] #: [id number] Patient: WHITNEY RONDON 7. Hypokalemia. PLANS 1. Vancomycin and cefepime pending cultures. 2. Replace potassium and check magnesium. 3. IV fluids, hold Bumex. 4. SCDs for DVT prophylaxis. 5. Florastor. 6. Repeat labs in the morning. 7. May need pressors if blood pressure does not improve with bolus of IV fluids. Dictated by Harriet Naik M.D. AML/ts TD: 01/24/2017 05:25 JOB #: [id number] HISTORY AND PHYSICAL Page 1 of 1 X Harriet Naik MD X HISTORY AND PHYSICAL
--- NOTE | ~2017-01-23 | CO ---
Unit #: [id number] #: [id number] Patient: WHITNEY RONDON [id number] [address] [place], [place] [address] [id number] I MR#: [id number] NAME: WHITNEY RONDON ROOM: CIC3 Age: 67 Sex: F Admission Date: 01/24/2017 : 1950 Attending Physician: Anurag Bush M.D. Primary Care Physician: Eric Rosado M.D. Consultation Date: 01/24/2017 CONSULTATION REPORT REASON FOR CONSULT ICU management. CHIEF COMPLAINT Low blood pressure. HISTORY OF PRESENT ILLNESS This is a 67-year-old female who is well known to us with history of dystonia, chronic pain, asthma and bipolar disorder who was admitted to the hospital for severe hypotension and UTI. Patient was recently seen at our facility for UTI and infection and was discharged home at that time. However, she presented back with suprapubic pain and profound weakness. In the emergency room the patient was found to have significant hypotension in spite of multiple normal saline boluses. She had a central line placed by me right now, and she is currently on Levophed. PAST MEDICAL HISTORY 1. GERD. 2. Dystonia. 3. Fibromyalgia. 4. Asthma. 5. Bipolar disorder. PAST SURGICAL HISTORY 1. Cardiac cath. 2. ALTON-BSO. 3. Bilateral carpal tunnel release. 4. Appendectomy. 5. Neuroma removal. 6. Tonsillectomy. ALLERGIES Reglan, Cipro, sulfa and methadone. HOME MEDICATIONS 1. Zoloft. 2. Baclofen. 3. Valium. 4. Morphine. 5. Flexeril. 6. Elavil. Unit #: [id number] #: [id number] Patient: WHITNEY RONDON 7. Aspirin. 8. Omeprazole. FAMILY HISTORY Coronary artery disease, diabetes and hypertension. SOCIAL HISTORY She lives with her brother. She states that she is under Hospice care. No history of smoking or drug abuse. REVIEW OF SYSTEMS Lower abdominal pain. Profound weakness. Tremors and subjective fever. A 12-point review of systems was obtained and were negative except for what was mentioned above. PHYSICAL EXAMINATION GENERAL: The patient does not appear in acute distress, but she looks very weak and chronically ill. VITALS: Blood pressure is 76/49, O2 saturation 98%, heart rate 92. HEENT: Atraumatic, normocephalic. PERRLA. EOMI. NECK: Rotated toward the right with some stiffness. CHEST: Clear to auscultation bilaterally. HEART: S1, S2. No murmurs, gallops or rubs. ABDOMEN: Soft. Nontender. Bowel sounds positive. No hepatosplenomegaly. EXTREMITIES: Trace edema. SKIN: No rashes. TITLE PROCESSOR: Awake, alert, oriented x3. She has right-sided weakness with generalized tremor. DIAGNOSTIC STUDIES LABS: Creatinine 0.7, sodium 131, potassium 2.9. IMAGING TESTS: Chest x-ray is unremarkable. ASSESSMENT 1. Septic shock. 2. Hyponatremia. 3. Urosepsis. 4. Dystonia. 5. Asthma. 6. Bipolar disorder. PLAN 1. The patient is ill appearing and critical. She is currently on Levophed with escalating dose. 2. She is status post 30 mL/kg normal saline boluses to follow the sepsis guidelines. 3. Broad-spectrum antibiotics. 4. Continue feeding and DVT/GI prophylaxis. 5. Patient is stating that she is under Hospice care; however, we do not have confirmation of these documents. We are in the process of contacting Hospice and family to clarify goals of care. NOTE: Critical care time spent on this patient was 32 minutes. Dictated by... Unit #: [id number] #: [id number] Patient: WHITNEY RONDON May Pino TD: 01/24/2017 10:24 JOB #: [id number] CONSULTATION REPORT Page 1 of 1 X ELIZABETH ORANTES MD CONSULTATION REPORT
--- NOTE | ~2017-01-23 | EKG ---
PATIENT: WHITNEY RONDON UNIT #: [id number] Ventricular Rate: 79 BPM Atrial Rate: 79 BPM P-R Interval: 168 ms QRS Duration: 80 ms Q-T Interval: 374 ms QTC Calculation(Bezet): 428 ms P Victoria: 54 degrees Calculated R Victoria: 33 degrees Calculated T Victoria: -149 degrees Diagnosis Line: Normal sinus rhythm Diagnosis Line: Left ventricular hypertrophy Diagnosis Line: When compared with ECG of 12-JAN-2017 14:58, Diagnosis Line: T wave inversion more evident in Inferior leads Diagnosis Line: Confirmed by ESTRELLA AGUIAR MD ([id number]) on Diagnosis Line: 01/24/2017 9:12:42 PM INTERPRETING MD: FOUZIA
--- NOTE | ~2017-01-23 | DS ---
Unit #: [id number] #: [id number] Patient: WHITNEY RONDON [id number] [address] [place], [place] [address] [id number] I MR#: [id number] NAME: WHITNEY RONDON ROOM: 215 Age: 67 Sex: F Admission Date: 01/24/2017 : 1950 Discharge Date: 01/25/2017 Attending Physician: Anurag Bush M.D. Primary Care Physician: Eric Rosado M.D. DISCHARGE SUMMARY REASON FOR ADMISSION Hypotension; UTI. 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 She presented to our hospital in transfer from outside facility secondary to UTI, as well as persistent hypotension. She has off and on been admitted numerous times to the hospital secondary to urinary tract infections, as well as chronic deconditioning. She was admitted, subsequently placed on pressor support after her systolic blood pressure was noted to be in the 70s and 80s. She was placed in the ICU. Consultation was placed to Dr. Pimentel and associates for plant accountant. She was started on IV antibiotics in regard to her urinary tract infection. After review and discussion with the patient, as well as the patient's brother, both wished to have optimal pain control and elected for comfort care measures only at this point in time. They stated they wished to speak to Hospice, which apparently had been called on a recent hospital admission to [facility]; however, they had not seen the patient yet. Both the patient and the patient's brother, who is the primary caregiver, are well aware that, once medications are discontinued and pain control is achieved, the patient will likely over the next few days to weeks. They are understanding of the situation and her overall quality of life, which is very poor. At this point in time, the patient will be transferred to a med/surg floor. Hospice services will be consulted, and the patient will be transitioned home with Hospice services. FINAL DISCHARGE DIAGNOSES 1. Severe chronic immobility syndrome, essentially bedridden. 2. Chronic pain syndrome. 3. Endstage dystonia. 4. Chronic muscle spasms. 5. Fibromyalgia. 6. Prior history of traumatic back injury with numerous compression fractures lower spine. Unit #: [id number] #: [id number] Patient: WHITNEY RONDON 7. Asthma. 8. Chronic respiratory failure. 9. Bipolar. 10. Frequent urinary tract infections. 11. Numerous hospital admissions secondary to sepsis. 12. Prior history of healthcare-acquired pneumonia. 13. Urge incontinence. DISCHARGE MEDICATIONS Per Hospice service. PLAN Ultimately is home with Hospice. Dictated by... Anurag Bush M.D. MARILU/gabriel TD: 01/26/2017 09:57 JOB #: [id number] DISCHARGE SUMMARY Page 1 of 1 X Anurag Bush MD X DISCHARGE SUMMARY
--- NOTE | ~2017-01-23 | CR7 ---
[facility] A Service of [facility] RADIOLOGY TEXT RESULTS PATIENT: WHITNEY RONDON LOCATION: [facility]3 CICCU3-14 : [birth year] UNIT #: [id number] AGE: [address]: Anurag Bush MD SEX: F ORDER DR: [id number] [facility] [address] [facility]. [place], [place] [address] [id number] I MR#: [id number] Acc #: [id number] NAME: WHITNEY RONDON : 1950 SEX: F STUDY DATE/TIME: 01/23/2017 19:12 UNIT: CEDOF ROOM: 46611 STUDY DESCRIPTION: CR Abdomen Single AP View Attending Physician: Anurag Bush M.D. Ordering Physician: Mary Grace Valenzuela M.D. Primary Care Physician: Eric Rosado M.D. MEDICAL IMAGING REPORT This report is preliminary unless electronic signature is present EXAM KUB, 01/23. INDICATIONS Abdominal pain with weakness and constipation for 2 days. FINDINGS Supine views of the abdomen and pelvis are compared with CT abdomen and pelvis from 01/06/17. The bowel gas pattern is normal. No obstruction is seen. Stool volume is within normal limits. The patient is osteopenic. There is nothing to suggest renal or ureteral calculus. IMPRESSION Osteopenia. Normal bowel gas pattern. Normal stool volume. Dictated by... Lucio Machado Jr., M.D. THIS IS AN ELECTRONICALLY VERIFIED REPORT Lucio Machado Jr., M.D. at 01/24/2017 10:04 AM FATOUMATA/stephen TD: 01/24/2017 08:05 JOB #: [id number] MEDICAL IMAGING REPORT Page 1 of 1 COPY
[2017-01-23 19:47] LABS: BASOPHIL# 0.1 X10e3 (0-0.3); BASOPHIL% 1.1 % (0-2.5); EOSINOPHIL# 0.7 X10e3 (0-0.7); EOSINOPHIL% 11.7 % (0.0-7.0); HEMOGLOBIN 12.4 gm/dL (12.0-16.0); LYMPHOCYTE# 2.2 X10e3 (1.0-3.5); LYMPHOCYTE% 34.1 % (17.0-45.0); MEAN CELL VOLUME 83.7 FL (83-96); MEAN CORPUSCULAR HEMOGLOBIN 27.2 PG (28-34); MEAN CORPUSCULAR HGB CONC 32.5 g/dL (30-36); MEAN PLATELET VOLUME 8.3 FL (6.5-11.5); MONOCYTE# 0.6 X10e3 (0-1.0); MONOCYTE% 9.1 % (3.0-12.0); NEUTROPHIL# 2.8 X10e3 (1.5-7.1); PLATELET COUNT 321 X10e3 (140-420); RED BLOOD COUNT 4.55 X10e (3.90-5.30); RED CELL DISTRIBUTION WIDTH 18.7 % (11.0-15.5); WHITE BLOOD COUNT 6.3 X10e3 (4.0-10.5)
[2017-01-23 19:51] LABS: DIFF IND NO
[2017-01-23 19:55] LABS: POC - CKMB 1.1 ng/mL (0.0-7.9); POC - TROPONIN <0.05 ng/mL (<=0.05)
[2017-01-23 19:59] LABS: INR 1.2; PROTHROMBIN TIME (PATIENT) 12.5 SECONDS (9.6-11.5)
[2017-01-23 20:13] LABS: ALBUMIN SERUM 3.7 g/dL (3.5-5.0); ALKALINE PHOSPHATASE 97 U/L (32-92); ALT (SGPT) 28 U/L (10-40); AMYLASE 17 U/L (0-46); AST (SGOT) 32 U/L (10-42); BILIRUBIN,TOTAL 0.5 mg/dL (0.2-2.0); BLOOD UREA NITROGEN 10 mg/dL (9-23); BUN/CREATININE RATIO 14.28; CALCIUM SERUM 9.2 mg/dL (8.4-10.2); CARBON DIOXIDE 30 mmol/L (22-31); CHLORIDE 90 mmol/L (100-111); CREATININE SERUM 0.7 mg/dL (0.6-1.4); GLOM FILT RATE Estimated 90.9 mL/min (>60); GLUCOSE FASTING 92 mg/dL (70-110); LIPASE 23 U/L (22-51); SODIUM 130 mmol/L (135-145)
[2017-01-23 20:14] LABS: BILIRUBIN, DIRECT <0.1 mg/dL (0.0-0.2); BILIRUBIN,INDIRECT 0.4 mg/dL (0.0-0.9); POTASSIUM 2.9 mmol/L (3.5-5.1)
[2017-01-23 20:28] LABS: URINE APPEARANCE CLOUDY; URINE BILIRUBIN NEG (NEG); URINE BLOOD TRACE (NEG); URINE COLOR YELLOW; URINE GLUCOSE NEG (NEG); URINE KETONE NEG (NEG); URINE LEUKOCYTE ESTERASE 3+ (NEG); URINE NITRATE NEG (NEG); URINE PROTEIN NEG (NEG); URINE SPECIFIC GRAVITY 1.003 (1.003-1.035); URINE UROBILINOGEN 0.2 MG/DL (NEG)
[2017-01-23 20:35] LABS: CULTURE INDICATED? YES; URINE BACTERIA AUWI NEG (NEGATIVE); URINE SQUAMOUS EPITHELIAL CELL OCC /[HPF]; UWBCS1 AUWI 200-300 (0-5)
[2017-01-23 20:36] LABS: AMPHETAMINE NEG (NEG); BARBITURATES NEG (NEG); BENZODIAZEPINES POS (NEG); COCAINE NEG (NEG); MARIJUANA NEG (NEG); OPIATES POS (NEG); TRICYCLIC ANTIDEPRESSANTS NEG (NEG); U METHADONE NEG (NEG)
[2017-01-24 07:11] LABS: BASOPHIL% 0.6 % (0-2.5); EOSINOPHIL# 0.4 X10e3 (0-0.7); EOSINOPHIL% 5.1 % (0.0-7.0); HEMATOCRIT 33.4 % (35.0-45.0); HEMOGLOBIN 10.8 gm/dL (12.0-16.0); LYMPHOCYTE# 1.3 X10e3 (1.0-3.5); LYMPHOCYTE% 18.3 % (17.0-45.0); MEAN CELL VOLUME 84.7 FL (83-96); MEAN CORPUSCULAR HEMOGLOBIN 27.4 PG (28-34); MEAN CORPUSCULAR HGB CONC 32.3 g/dL (30-36); MEAN PLATELET VOLUME 8.3 FL (6.5-11.5); MONOCYTE# 0.8 X10e3 (0-1.0); MONOCYTE% 11.1 % (3.0-12.0); NEUTROPHIL# 4.6 X10e3 (1.5-7.1); NEUTROPHIL% 64.9 % (40-75); PLATELET COUNT 247 X10e3 (140-420); RED BLOOD COUNT 3.94 X10e (3.90-5.30); RED CELL DISTRIBUTION WIDTH 18.8 % (11.0-15.5); WHITE BLOOD COUNT 7.1 X10e3 (4.0-10.5)
[2017-01-24 07:14] LABS: DIFF IND NO
[2017-01-24 08:11] LABS: BUN/CREATININE RATIO 10.76; CALCIUM SERUM 8.4 mg/dL (8.4-10.2); CREATININE SERUM 1.3 mg/dL (0.6-1.4); MAGNESIUM 1.9 mg/dL (1.6-3.0); POTASSIUM 3.2 mmol/L (3.5-5.1)
[2017-01-24 08:33] LABS: ARTERIAL BLD GAS O2 SATURATION 90.7 % (90.0-100.0); ARTERIAL BLOOD GAS ALLEN TEST NORMAL; ARTERIAL BLOOD GAS ART SITE RIGHT RADIAL; ARTERIAL BLOOD GAS CARBOXY HB 0.6 %sat (0.0-9.0); ARTERIAL BLOOD GAS HCO3 26.7 mmol/L; ARTERIAL BLOOD GAS MET HB 0.7 %sat (0.0-2.0); ARTERIAL BLOOD GAS PCO2 45.7 mmHg (35.0-45.0); ARTERIAL BLOOD GAS PO2 59.4 mmHg (80.0-100); ARTERIAL BLOOD GAS pH 7.375 (7.350-7.450); ARTERIAL DRAW? YES
[2017-01-25 04:43] LABS: BASOPHIL% 1.1 % (0-2.5); EOSINOPHIL# 0.4 X10e3 (0-0.7); EOSINOPHIL% 9.7 % (0.0-7.0); HEMATOCRIT 27.4 % (35.0-45.0); HEMOGLOBIN 9.2 gm/dL (12.0-16.0); LYMPHOCYTE# 1.4 X10e3 (1.0-3.5); LYMPHOCYTE% 35.2 % (17.0-45.0); MEAN CELL VOLUME 84.8 FL (83-96); MEAN CORPUSCULAR HEMOGLOBIN 28.4 PG (28-34); MEAN CORPUSCULAR HGB CONC 33.5 g/dL (30-36); MEAN PLATELET VOLUME 8.3 FL (6.5-11.5); MONOCYTE# 0.4 X10e3 (0-1.0); NEUTROPHIL# 1.7 X10e3 (1.5-7.1); PLATELET COUNT 213 X10e3 (140-420); RED BLOOD COUNT 3.23 X10e (3.90-5.30); RED CELL DISTRIBUTION WIDTH 18.7 % (11.0-15.5); WHITE BLOOD COUNT 3.9 X10e3 (4.0-10.5)
[2017-01-25 04:44] LABS: DIFF IND NO
[2017-01-25 04:49] LABS: CALCIUM SERUM 7.8 mg/dL (8.4-10.2); CREATININE SERUM 0.6 mg/dL (0.6-1.4); GLOM FILT RATE Estimated 95.7 mL/min (>60); MAGNESIUM 1.7 mg/dL (1.6-3.0)
[2017-01-25 04:51] LABS: POTASSIUM 2.9 mmol/L (3.5-5.1)
== END 2017-01-25 19:28 | DRG 871 ==
LOC: CED 18:13 → CICCU3 01-24 00:24 → CEDOF 01-24 00:24 → CICCU3 01-24 09:31 → C2A 01-25 14:51
PROVIDERS: Emergency Medicine; Internal Medicine
PROC: 05HN33Z Insertion of Infusion Device into Left Internal Jugular Vein, Percutaneous Approach (ICD-10-PCS; principal; 2017-01-24)
PROC: B544ZZA Ultrasonography of Left Jugular Veins, Guidance (ICD-10-PCS; 2017-01-24)
DX: A41.9 Sepsis, unspecified organism (principal); R65.21 Severe sepsis with septic shock; N17.9 Acute kidney failure, unspecified; J96.10 Chronic respiratory failure, unspecified whether with hypoxia or hypercapnia; N39.0 Urinary tract infection, site not specified; E87.1 Hypo-osmolality and hyponatremia; M62.3 Immobility syndrome (paraplegic); Z74.01 Bed confinement status; G89.4 Chronic pain syndrome; G24.9 Dystonia, unspecified; M62.838 Other muscle spasm; M79.7 Fibromyalgia; J45.909 Unspecified asthma, uncomplicated; F31.9 Bipolar disorder, unspecified; Z87.440 Personal history of urinary (tract) infections; N39.41 Urge incontinence; Z51.5 Encounter for palliative care; K21.9 Gastro-esophageal reflux disease without esophagitis; Z90.710 Acquired absence of both cervix and uterus; Z88.1 Allergy status to other antibiotic agents; Z88.5 Allergy status to narcotic agent; Z88.0 Allergy status to penicillin; Z88.2 Allergy status to sulfonamides; Z88.7 Allergy status to serum and vaccine; Z88.8 Allergy status to other drugs, medicaments and biological substances; Z82.49 Family history of ischemic heart disease and other diseases of the circulatory system; Z83.3 Family history of diabetes mellitus
CPT/HCPCS: 36415; 36600; 71010; 74000; 80048; 80076; 80307; 81003; 82140; 82150; 82553; 82803; 83605; 83690; 83735; 83880; 84484; 85025; 85610; 87040; 87086; 92610; 93005; 94760; 96360; 99285; G8996-GN; G8997-GN; G8998-GN; J0692; J1265; J1650; J2270; J2760; J3370